=== PATIENT | female | born 1940 | race Caucasian/White ===

== ENCOUNTER 2024-03-03 12:33 | Emergency (ER) | payer OTHER, SELFPAY ==
[2024-03-03] VITALS (10 sets, daily range): BP systolic 134–170; BP diastolic 57–101; PULSE 70–86; BMI 33.1
[2024-03-03 12:56] LABS: % Immature Granulocytes 0.7 % (0-0.5); % Lymphocytes 30.9 % (20.5-51.1); % Monocytes 11.7 % (1.7-9.3); % Neutrophils 56.7 % (42.2-75.2); Absolute Lymphocytes 1.8 10^3/uL (1.2-3.4); Absolute Monocytes 0.7 10^3/uL (0.1-0.6); Absolute Neutrophils 3.3 10^3/uL (1.4-6.5); Hematocrit 35.1 % (37.0-47.0); Hemoglobin 11.6 g/dL (12.0-16.0); Mean Corpuscular Hgb 33.5 pg (27.0-31.0); Mean Corpuscular Volume 101.4 fL (81.0-99.0); Mean Platelet Volume 9.1 fL (7.4-10.4); Nucleated Red Blood Cells % 0 %; Platelet Count 274 10^3/uL (130-400); Red Blood Cell Count 3.46 10^6/uL (4.20-5.40); Red Cell Dist. Width 13.8 % (11.5-14.5); White Blood Cell Count 5.8 10^3/uL (4.8-10.8)
[2024-03-03 13:19] LABS: ALT (SGPT) 21 U/L (0-35); AST (SGOT) 30 U/L (14-36); Albumin 4.7 g/dl (3.5-5.0); Alkaline Phosphatase 81 U/L (38-126); Blood Urea Nitrogen 11 mg/dl (7-17); Calcium 9.9 mg/dl (8.4-10.2); Carbon Dioxide 28 mmol/L (22-30); Chloride 99 mmol/L (98-107); Glucose 118 mg/dl (70-99); Potassium 4.7 mmol/L (3.5-5.1); Sodium 136 mmol/L (135-145); Total Bilirubin 0.9 mg/dl (0.2-1.3); Total Protein 7.5 g/dl (6.3-8.2); eGFR > 60.00
--- NOTE | 2024-03-03 16:20 | ED.GENMED ---
History of Present Illness
General
Chief Complaint: Headache
Source: patient
Exam Limitations: none
Time Seen by Provider: 03/03/24 15:52
Nursing documentation reviewed up to this point in time: agreed with
History of Present Illness
History of Present Illness:
Patient is a 83 year old female presenting to the emergency department from home for evaluation of intermittent headaches. She reports frontal headaches that are 'on and off' and more severe over this past week. She does note some visual 'changes'
intermittently during these headaches. She denies any true loss of vision, blurry vision, double vision, flashers or floaters and states that it just seems 'off'. At this time - patient does have a mild frontal headache although denies any vision
disturbances. Headache is definitely less severe than it was earlier today. These headaches are gradual in onset and not sudden.
She thinks that she has noticed a headache at least at some point every day over the last week but feels they occur randomly and do not correlate to any time of day/activity.
Patient denies any recent trauma. No nausea/vomiting, dizziness, ataxia, dysarthria, weakness or numbness/tingling. Patient denies any associated fevers, severe neck pain/stiffness, rashes. No other URI symptoms.
Past History
Past History
ED Past Medical History: NIDDM
ED Past Surgical History: Cholecystectomy, Gynecological (Hysterectomy) and Orthopedic (Bilateral carpal tunnel release)
Social History
Tobacco: Non-smoker
Alcohol: Occasional
Personal:
Living: with family
Family History
Family History: Diabetes; Negative CAD
Review of Systems
Review of Systems
Allergies reviewed?: Yes
All Other Systems: ROS reviewed and negative except as documented in HPI and ROS
Phy Exam
Physical Exam
Physical Exam:
Vitals: Mildly hypertensive on arrival, otherwise VSS. Afebrile
General: Patient is well appearing, no acute distress. Nontoxic appearing.
Skin: Warm and dry, no rashes or lesions
Head: Normocephalic, atraumatic. Mild tenderness to palpation of frontal sinuses. No tenderness at TMJ. No jaw claudication. No true temporal tenderness.
Eyes: Sclera nonicteric. EOMs intact. Visual krishnan intact. Pupils equal round and reactive to light bilaterally. No nystagmus.
Throat: Protecting airway
Neck: Normal ROM, no cervical spine tenderness, no meningismus
Cardiac: Regular rate and rhythm, no murmurs.
Pulm: Normal respiratory effort, no wheezes, rales, rhonchi heard on exam.
Abdomen: No abdominal tenderness.
Extremities: No evidence of cyanosis or edema
Neuro: AAOx3. CN II-XII intact. No focal neurologic deficits. Sensation fully intact. Strength 5/5 in upper and lower extremities. Normal finger to nose. Speech fluid.
Psychiatric: Normal affect.
Course
Orders/Labs/Results
Orders:
Orders
03/03/24 12:42
CT Head W/o Iv Contrast Urgent
Comment:
Reason For Exam: headache, vision changes over 1 week
C-Reactive Protein Urgent
Comment: ADD ON
CMP [Comprehensive Metabolic Panel] Urgent
Complete Blood Count/With Diff Urgent
Erythrocyte Sed Rate Urgent
Comment: ADD ON
03/03/24 16:15
Orthostatic VS- Treatment ONCE
03/03/24 16:19
Add On- LAB Urgent
Tests Added?: ESR, CRP
03/03/24 16:29
COVID-19 Antigen Urgent
Source: Nasal Swab
03/03/24 16:40
Acetaminophen [Tylenol] 650 mg PO NOW STA
Abnormal Lab Results
03/03/24
12:42
RBC 3.46 L 10^6/uL
(4.20-5.40)
Hgb 11.6 L g/dL
(12.0-16.0)
Hct 35.1 L %
(37.0-47.0)
MCV 101.4 H fL
(81.0-99.0)
MCH 33.5 H pg
(27.0-31.0)
Absolute Monos (auto) 0.7 H 10^3/uL
(0.1-0.6)
Immature Gran % 0.7 H %
(0-0.5)
Monocytes % 11.7 H %
(1.7-9.3)
Glucose 118 H mg/dl
(70-99)
03/03/24 12:42
03/03/24 12:42
Vital Signs
Initial and Last Documented VS:
Initial Vital Signs
Temp Pulse Resp BP Pulse Ox
98.0 F 74 16 161/95 99
03/03/24 12:34 03/03/24 12:34 03/03/24 12:34 03/03/24 12:34 03/03/24 12:34
Last Documented Vital Signs
Temp Pulse Resp BP Pulse Ox
98.0 F 72 18 168/89 97
03/03/24 12:34 03/03/24 19:41 03/03/24 19:41 03/03/24 19:41 03/03/24 19:41
MDM/Problems Addressed
Differential Diagnosis Includes:
Not limited to: migraine headache, sinusitis, tension headache, temporal arteritis, mass, intraparenchymal hemorrhage
MDM/Problems Addressed:
83-year-old female presenting with intermittent headaches and visual disturbances over the past week. Headaches seem to be somewhat chronic for patient although 'worse 'over the past week. Denies any true visual loss, double vision, blurry vision,
flashers, floaters. No dizziness. No ataxia, dysarthria. No fevers or meningeal signs. Patient mildly hypertensive, otherwise vital signs are stable. She is afebrile. Physical exam as above. Patient is very well-appearing, conversational and
nontoxic. Mild tenderness to frontal sinuses and bilateral temples. No tenderness to maxillary sinuses. Visual krishnan are intact. Pupils equal round and reactive to light bilaterally. Patient has no meningeal signs. She has no focal neurologic
deficits. Initial labs were obtained in triage which show a very mild and stable anemia with hemoglobin 11.6. Otherwise no clinically significant abnormalities. Head CT was also obtained without any acute findings. Suspect likely tension
headache vs sinusitis. Given age, history of possible vision disturbances, and location of pain�temporal arteritis would be a consideration, although lower suspicion. Will add on inflammatory markers. Given patient has no focal neurologic
deficits and headaches seem somewhat chronic and gradual in nature with normal head CT�do not suspect central process. Will treat with Tylenol and reassess. Patient has not taken any [id number] pain medication prior to coming to emergency
department. Disposition pending inflammatory markers, reassessment.
Chronic conditions affecting care:
N/A
Acute Exacerbation and/or Progression of Chronic Illness:
N/A
*Radiology
Radiology exam reviewed: radiology read reviewed
*Pulse Oximetry
Patient hypoxic: no
*EKG
Interpreted by ED Provider?: NA
*Decision Support Manager Interpretation
Rate: Decision Support Manager- N/A
*Critical Care Note
Total Time (30-74mins, 75-104mins- exclusive of procedures): Not Applicable
Update Note
Update Note:
Update: COVID test negative. Inflammatory markers, ESR and CRP both negative. Into reassess patient who does report improvement in pain following Tylenol. She is feeling better. Did get patient up and walking and she has steady gait, no
instability. Suspect likely sinusitis vs tension headache given improvement in pain with Tylenol and negative workup. Did discuss at length return precautions with patient. She will monitor symptoms very closely and return if worse. She will
follow closely with primary care as well and may need ENT/neurology input if symptoms persist. Case discussed with attending physician
ED Attending Note
-
Portions of this chart may have been created with voice recognition software.� Occasional wrong word or��sound alike� substitutions may have occurred due to the inherent limitations of voice recognition software.
Discharge Plan
Departure
Patient Disposition: Home (Routine Discharge)
Date of Disposition: 03/03/24
Time of Disposition: 19:58
Patient with high blood pressure during this ER visit?: No
Condition: Good
Covid-19: Negative COVID-19
Discharge Problem:
Headache
Instructions: Headache, Adult (DC)
Prescriptions:
No Action
acetaminophen [Tylenol] 325 mg Tablet
325 mg PO DAILYPRN PRN (Reason: mild pain)
cholecalciferol (vitamin D3) [Vitamin D3] 25 mcg (1,000 unit) Tablet
25 mcg PO DAILY
psyllium husk 0.4 gram Capsule
0.4 g PO QPM
Centrum Minis Women 50 Plus 4 mg iron-200 mcg-25 mcg Tablet
1 tab PO DAILY
Referrals:
Bre Huitron PA-C [Family Provider] - Follow up in 5-7 days
Activity Restrictions/Additional Instructions:
RETURN TO THE EMERGENCY DEPARTMENT WITH ANY SEVER HEADACHE, VOMITING, CHANGES IN VISION, DIFFICULTY WALKING, CONFUSION, NUMBNESS/TINGLING IN LOWER LEGS, FEVERS, WORSENING IN CURRENT SYMPTOMS, OR ANY OTHER CONCERNS
-As discussed�your CT scan showed no acute abnormalities in the brain.
-You should continue to take Tylenol at home as needed for headache. You can try Flonase nasal spray. it is important to stay very well-hydrated.
-Follow-up with your primary care provider in a few days for further evaluation/ to ensure symptoms are improving
Monitor your symptoms closely return to the emergency department with any acute worsening/new symptoms or any signs of neurologic changes
Interventions
Interventions:
*Risk Screen - Suicide Last Done: 03/03/24 12:34
*General Assessment Last Done: 03/03/24 12:34
*Neglect/Abuse Screening Last Done: 03/03/24 17:56
*ED COVID-19 Vaccine History Last Done: 03/03/24 12:34
*Nursing Disposition Last Done: 03/03/24 20:20
Discharge Date and Time
Discharge Date/Time: 03/03/24 20:20
Print Language: EQUATORIAL GUINEAN
[2024-03-03 16:51] LABS: COVID-19 Antigen Negative (Negative)
[2024-03-03] MEDS: TYLENOL 650 MG PO (17:18)
[2024-03-03 17:33] LABS: Erythrocyte Sed Rate 17 mm/hour (0-20)
[2024-03-03 18:01] LABS: C-Reactive Protein < 5.00 mg/L (0.0-10.00)
== END 2024-03-03 20:20 | disposition home or self-care (01) ==
LOC: EMR 12:33
PROVIDERS: Emergency Medicine; Physician Assistant; EMERGENCY PHYSICIAN Emergency Medicine; FAMILY PHYSICIAN Physician Assistant Medical
DX: R51.9 Headache, unspecified (principal); E11.9 Type 2 diabetes mellitus without complications; D64.9 Anemia, unspecified; Z83.3 Family history of diabetes mellitus; Z90.49 Acquired absence of other specified parts of digestive tract; Z90.710 Acquired absence of both cervix and uterus
CPT/HCPCS: 99284; 70450; 80053; 85025; 85652; 86140; 87811

== ENCOUNTER 2024-10-20 21:19 | Inpatient (IN) | payer OTHER, SELFPAY ==
[2024-10-20 18:53] VITALS: BMI 33.4
[2024-10-20 18:56] VITALS: BP 169/86
[2024-10-20] MEDS: MORPHINE SULFATE 4 MG IV ×2 (19:08→20:33)
[2024-10-20] MEDS: ZOFRAN 4 MG IV (19:09)
[2024-10-20 19:30] LABS: Hematocrit 28.3 % (37.0-47.0); Hemoglobin 10.1 g/dL (12.0-16.0); Mean Corp Hgb Conc. 35.7 g/dL (33.0-37.0); Mean Corpuscular Volume 98.6 fL (81.0-99.0); Nucleated Red Blood Cells % 0 %; Platelet Count 255 10^3/uL (130-400); Red Cell Dist. Width 13.7 % (11.5-14.5)
[2024-10-20 19:45] LABS: ALT (SGPT) 18 U/L (0-35); AST (SGOT) 25 U/L (14-36); Albumin 4.4 g/dl (3.5-5.0); Alkaline Phosphatase 92 U/L (38-126); Blood Urea Nitrogen 14 mg/dl (7-17); Calcium 9.4 mg/dl (8.4-10.2); Carbon Dioxide 25 mmol/L (22-30); Chloride 105 mmol/L (98-107); Estimated Creatinine Clearance 47 ml/min; Glucose 140 mg/dl (70-99); Potassium 4.2 mmol/L (3.5-5.1); Sodium 135 mmol/L (135-145); Total Protein 6.7 g/dl (6.3-8.2); eGFR > 60.00
--- NOTE | 2024-10-20 20:01 | ED.GENMED ---
History of Present Illness
General
Chief Complaint: Fall
Source: patient
Exam Limitations: none
Time Seen by Provider: 10/20/24 18:57
Nursing documentation reviewed up to this point in time: agreed with
History of Present Illness
History of Present Illness:
Note:
CHIEF COMPLAINT(S)
Pain in the left hip.
HISTORY OF PRESENT ILLNESS
The patient is an 84-year-old female presenting with pain in the left hip. She describes the pain as causing significant discomfort and states, 'Oh, I am uncomfortable.' The onset of the pain occurred while trying to sit in the chair. The chair
rolled out and she fell onto the floor. She denies hitting her head or losing consciousness during this episode. There is also indication of generalized body discomfort, although the primary focus remains on the left hip. The patient reports
experiencing some back pain as well, which she describes as mild. Patient states that the back pain is chronic. She did have back surgery in [address] Iniguez
ALLERGIES
The patient reports allergies to certain pain medications; however, specific medications were not identified during the discussion. The patient is uncertain about past exposure to morphine.
CHRONIC MEDICAL CONDITIONS SIGNIFICANTLY AFFECTING CARE
The patient has a history of back issues for which she received treatment in 2014. She also has a history of type 2 diabetes, although she is not currently on medication for it.
PHYSICAL EXAM
- General: The patient appears uncomfortable due to left hip pain.
- Musculoskeletal: Reported pain in the left hip and mild back discomfort.
PROBLEM LIST
Acute:
- Left hip pain
Chronic:
- History of back problems
- Type 2 diabetes (currently not on medication)
PLAN
1. Administer morphine for pain management, pending confirmation of no allergy to this medication.
2. Order an X-ray of the left hip to assess for any fractures or other abnormalities.
DIFFERENTIAL DIAGNOSIS
The Differential Diagnosis includes, in no particular order and is not limited to:
1. Hip fracture
2. Osteoarthritis
Nursing notes reviewed and vital signs reviewed.
Disposition:
SUMMARY OF ENCOUNTER
The patient, an 84-year-old female, presented to the emergency department with left hip pain after falling while trying to sit in a chair. She denied hitting her head or losing consciousness. On evaluation, she complained of significant left hip
discomfort. An X-ray was conducted, which showed a slightly comminuted and displaced left femoral neck fracture.
DISPOSITION
Admit to hospital service.
ASSESSMENT
The patient is an 84-year-old female with a left femoral neck fracture, likely complicated by age-related changes in bone structure.
EMERGENCY TREATMENTS ADMINISTERED
The patient received morphine for pain management.
MANAGEMENT OF THE PATIENTS CARE WAS DISCUSSED WITH
Orthopedics was consulted regarding the left femoral neck fracture.
INDEPENDENT REVIEW OF LABS AND INTERPRETATION OF TESTS
- My independent interpretation of the X-ray reveals a slightly comminuted and displaced left femoral neck fracture.
MEDICATION RECONCILIATION
Morphine was administered for pain management.
MEDICAL DECISION MAKING
- Number and Complexity of Problems Addressed: Chronic conditions affecting care include history of back problems and type 2 diabetes (currently not on medication). Differential Diagnosis: Hip fracture, Osteoarthritis, Muscle strain, Bursitis,
Tendinitis, Lumbar radiculopathy, Sacroiliac joint dysfunction, Spinal stenosis, Avascular necrosis, Metastatic bone disease.
- Data:
- Category 1: X-ray tests independently reviewed.
- Category 3: Management discussed with tax services specialist.
- Risk: The patient is to be admitted due to the hip fracture and the required orthopedics consultation for surgical evaluation and management.
DIAGNOSIS
- Left femoral neck fracture (ICD-10 code: S72.001A).
Past History
Past History
ED Past Medical History: NIDDM
ED Past Surgical History: Cholecystectomy, Gynecological (Hysterectomy) and Orthopedic (Bilateral carpal tunnel release)
Social History
Tobacco: Non-smoker
Alcohol: Occasional
Personal:
Living: with family
Family History
Family History: Diabetes; Negative CAD
Review of Systems
Review of Systems
Allergies reviewed?: Yes
All Other Systems: ROS reviewed and negative except as documented in HPI and ROS
Constitutional: Reports no symptoms
EENT: Reports no symptoms
Respiratory: Reports no symptoms
Cardiac: Reports no symptoms
ABD/GI: Reports no symptoms
: Reports no symptoms
Musculoskeletal: Reports joint pain, joint swelling and muscle pain
Skin: Reports no symptoms
Neurological: Reports no symptoms
Endocrine: Reports no symptoms
Hematologic/Lymphatic: Reports no symptoms
Psychiatric: Reports no symptoms
Phy Exam
General Physical Exam
General Presentation: moderate distress
General age: appears stated age
General Skin: warm and dry
General Habitus: normal
General Mental: alert
General Hydration: appears well hydrated
ENT Exam
ENT Exam: EOMI, pharynx normal, neck supple and normocephalic
Eye Exam
Eye Exam: PERRL, cornea clear and conjunctiva normal
Cardiovascular Exam
Cardiovascular Exam: regular rate/rhythm, no edema, no murmur and normal peripheral pulses
Pulmonary Exam
Pulmonary Exam: lungs clear, no respiratory distress, no rales, no crackles, no rhonchi, no stridor, no wheezing and no cough
Gastrointestinal Exam
Gastrointestinal Exam: normal bowel sounds, non tender, soft, no organomegaly, no pulsatile mass and non distended
Neurological Exam
Neurological Exam: alert, oriented x3, no motor deficits and speech normal
Musculoskeletal Exam
Musculoskeletal Exam: back pain (Chronic) and joint swelling (Left hip)
Skin Exam
Skin Exam: normal color, warm/dry, no rash and no petechia
Psychiatric Exam
Psychiatric Exam: normal mood/affect
Course
Orders/Labs/Results
Orders:
Orders
10/20/24 18:55
Hip, Left 2-3 Views [CR Hip - LT w/wo Pel 2-3 Vw*] Urgent
Comment:
Reason For Exam: injury post fall
Include a pelvis x-ray?: No
10/20/24 19:02
Morphine Sulfate 4 mg IV NOW STA
10/20/24 19:03
Ondansetron Injectable [Zofran] 4 mg IV NOW STA
10/20/24 19:04
Electrocardiogram (*1) Urgent
Reason for Study: PreOp
Urinalysis Reflex To Culture Urgent
10/20/24 19:05
EKG- Treatment ONCE
10/20/24 19:13
Type+Screen Urgent
Complete Blood Count/With Diff Urgent
Comprehensive Metabolic Panel Urgent
10/20/24 20:02
ABO2 Urgent
BBK Wristband Number:
Associate notified that ABO2 has been ordered: ANTOINETTE/[id number]
Date: 10/20/24
Time: 20:02
Raw Cheese Worker ID: [id number]
10/20/24 20:03
Protime/PTT Urgent
10/20/24 20:05
Morphine Sulfate 4 mg IV NOW STA
10/20/24 20:08
Femur, Left 2 View [CR Femur - Left Min 2 Vw] Urgent
Comment:
Reason For Exam: hip fx
Abnormal Lab Results
10/20/24
19:13
RBC 2.87 L 10^6/uL
(4.20-5.40)
Hgb 10.1 L g/dL
(12.0-16.0)
Hct 28.3 L %
(37.0-47.0)
MCH 35.2 H pg
(27.0-31.0)
Abs Immat Gran (auto) 0.1 H 10^3/uL
(0-0.05)
Absolute Monos (auto) 0.8 H 10^3/uL
(0.1-0.6)
Immature Gran % 1.0 H %
(0-0.5)
Monocytes % 12.5 H %
(1.7-9.3)
Glucose 140 H mg/dl
(70-99)
10/20/24 19:13
10/20/24 19:13
Vital Signs
Initial and Last Documented VS:
Initial Vital Signs
Temp Pulse Pulse Ox
98.2 F 70 100
10/20/24 18:51 10/20/24 18:51 10/20/24 18:51
Last Documented Vital Signs
Temp Pulse BP Pulse Ox
98.2 F 70 169/86 100
10/20/24 18:51 10/20/24 18:51 10/20/24 18:56 10/20/24 20:05
*Pulse Oximetry
SaO2: 100
Oxygen Mode of Delivery: Room air
Patient hypoxic: no
*Critical Care Note
Total Time (30-74mins, 75-104mins- exclusive of procedures): Not Applicable
Update Note
Update Note:
Spoke with Dr. Prado , orthopedic surgery who requested a Full-length femur
Spoke with the hospitalist who agreed to admit the patient.
ED Attending Note
-
Portions of this chart may have been created with voice recognition software.� Occasional wrong word or��sound alike� substitutions may have occurred due to the inherent limitations of voice recognition software.
Discharge Plan
Departure
Patient Disposition: Admit
Date of Disposition: 10/20/24
Time of Disposition: 20:19
Presentation/result/management discussed w/ accepting MD/DO: Hospitalist
Condition: Fair
Discharge Problem:
Closed fracture of left hip
Prescriptions:
No Action
acetaminophen [Tylenol] 325 mg Tablet
325 mg PO DAILYPRN PRN (Reason: mild pain)
cholecalciferol (vitamin D3) [Vitamin D3] 25 mcg (1,000 unit) Tablet
25 mcg PO DAILY
psyllium husk 0.4 gram Capsule
0.4 g PO QPM
Centrum Minis Women 50 Plus 4 mg iron-200 mcg-25 mcg Tablet
1 tab PO DAILY
Referrals:
Bre Huitron PA-C [Family Provider, Family Practice]
Interventions
Interventions:
*Risk Screen - Suicide Last Done: 10/20/24 18:53
*General Assessment Last Done: 10/20/24 18:53
*Neglect/Abuse Screening Last Done: 10/20/24 18:53
*ED- Fall Risk Assessment Last Done: 10/20/24 18:53
*ED COVID-19 Vaccine History Last Done: 10/20/24 18:53
ED-Musculoskeletal Assessment Last Done: 10/20/24 18:54
ED- Neurological Assessment Last Done: 10/20/24 18:54
ED-Skin Assessment Last Done: 10/20/24 18:54
Discharge Date and Time
Print Language: ST LUCIAN
[2024-10-20 20:26] LABS: APTT 28.2 Sec (23.4-35.0); INR 1.04; PT 14.1 Sec (11.4-14.6)
--- NOTE | 2024-10-20 20:40 | HPS.HSE ---
Addendum entered and electronically signed by Oj Patino MD 10/20/24 21:17:
History of Present Illness
Correct HPI
84F HX T2DM seen at ER:
- pw pain in the left hip with significant discomfort
- While trying to sit in the chair, the chair rolled out and she fell onto the floor.
ROS
- denies hitting her head or losing consciousness during this episode.
- reports experiencing some back pain as well, which she describes as mild.
- Back pain is chronic. HX back surgery [place] [address] Iniguez
Wrong HPI
<del>59M</del> <del>from</del> <del>[facility]</del> <del>,</del> <del>HX</del> <del>severe</del> <del>Fentanyl</del> <del>&</del> <del>Xylazine(</del> <del>Trank)</del> <del>use</del> <del>disorder</del> <del>[facility]</del> <del>EMS</del> <del>pw</del>
<del>nausea,</del> <del>vomiting.</del>
<del>-</del> <del>was</del> <del>brought</del> <del>into</del> <del>[facility]</del> <del>last</del> <del>night</del>
<del>-</del> <del>reports</del> <del>using</del> <del>IV</del> <del>Trank</del> <del>(</del> <del>Xylazine)</del> <del>&</del> <del>Fentanyl</del> <del>yesterday</del>
<del>-</del> <del>uses</del> <del>4-5</del> <del>bags</del> <del>of</del> <del>each</del> <del>daily.</del>
<del>-</del> <del>not</del> <del>cooperate</del> <del>on</del> <del>exam.</del>
<del>-</del> <del>writhing</del> <del>and</del> <del>diaphoretic</del>
Original Note:
Family Physician
-
Family Physician: Bre Huitron
Chief Complaint
-
Lt hip pain s/p fall
History of Present Illness
HPI
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
- was brought into [facility] last night
- reports using IV Trank ( Xylazine) & Fentanyl yesterday
- uses 4-5 bags of each daily.
- not cooperate on exam.
- writhing and diaphoretic
Medical History
Past Medical History
Past Medical History: Reports NIDDM
Past Surgical History: Reports Cholecystectomy, Gynocological (hysterectomy ) and Orthopedic (Bilateral carpal tunnel release))
Social History
Tobacco: Non-smoker
Alcohol: Occasional
Personal:
Family History
Family History: Not pertinent
Allergies / Home Medications
Allergies reflects when Allergies were last updated in [facility].
Home Medications with original date entered in [facility]
Allergy/Medication List:
Allergies
Allergy/AdvReac Type Severity Reaction Status Date / Time
soy (Soy) Allergy Diarrhea, Verified 03/03/24 12:38
nausea
Sulfa (Sulfonamide Allergy Unknown Verified 03/03/24 12:38
Antibiotics)
(Sulfa(Sulfonamide
Antibiotics))
Home Medications
acetaminophen 325 mg tablet (Tylenol) 325 mg PO DAILYPRN PRN mild pain 02/05/23
cholecalciferol (vitamin D3) 25 mcg (1,000 unit) tablet (Vitamin D3) 25 mcg PO DAILY 02/05/23
pkwejfnm-sob-mjqb 4 mg-folic acid 200 mcg-vit K 25 mcg-lutein tablet (Centrum Minis Women 50 Plus) 1 tab PO DAILY 02/05/23
psyllium husk 0.4 gram capsule 0.4 g PO QPM 02/05/23
Review of Systems
-
Constitutional: Reports No Symptoms
EENT: Reports No Symptoms
Respiratory: Reports No Symptoms
Cardiac: Reports No Symptoms
Abdomen/GI: Reports No Symptoms
: Reports No Symptoms
Musculoskeletal: Reports See HPI
Skin: Reports No Symptoms
Neurological: Reports No Symptoms
Endocrine: Reports No Symptoms
Hematologic/Lymphatic: Reports No Symptoms
Psych: Reports No Symptoms
Physical Exam
Vital Signs
Vital Signs
Temp Pulse BP Pulse Ox
98.2 F 70 169/86 100
10/20/24 18:51 10/20/24 18:51 10/20/24 18:56 10/20/24 20:05
Physical Exam
General: Well Developed, Well Nourished and No Apparent Distress
HEENT: NormoCephalic, Moist mucous membranes and Atraumatic
Respiratory: Clear
Cardiac: S1/S2 and Regular Rhythm; No Murmur or Rub
GI: Soft, Non Tender, Non Distended and Normal Bowel Sounds; No Organomegaly
Rectal: Deferred by Provider
Skin: No Rash
Neuro: Nonfocal/grossly intact
Laboratory Results
-
10/20/24 19:13
10/20/24 19:13
Laboratory Results
PT 14.1 Sec (11.4-14.6) 10/20/24 20:03
INR 1.04 10/20/24 20:03
APTT 28.2 Sec (23.4-35.0) 10/20/24 20:03
Total Bilirubin 0.8 mg/dl (0.2-1.3) 10/20/24 19:13
AST 25 U/L (14-36) 10/20/24 19:13
ALT 18 U/L (0-35) 10/20/24 19:13
Alkaline Phosphatase 92 U/L (38-126) 10/20/24 19:13
Data Reviewed
-
Diagnostic Radiology: Report Reviewed by me
Lab Data: Labs Reviewed by me
Impression/Plan
-
XR Lt Hip and full length femur : pending report
NO PRIOR hospitalist admission:
ASSESSMENT & PLAN
Pending Rx reconciliation
Acute closed Left hip Fx s/p Mechanical fall
Benefits of ORIF outweigh the perio risk
- full length femur XR
- T & S
- check UA
-No blood thinners.
- type and screen.
- Fx set protocol
- NPO after MN
- Medically acceptable to proceed for OR in AM
T2DM listed PMHX
- not on any OP OHG agents or insulin
- add ISS low
DVT Px: SCD
Full code
IP MS
[2024-10-20 22:00] VITALS: BMI 32.3
[2024-10-20 22:21] VITALS: BP 159/88
[2024-10-20] MEDS: DILAUDID 0.5 MG IV (22:38)
[2024-10-20] MEDS: NSS 1000 IV (22:38)
[2024-10-20] MEDS: SENOKOT PO (22:41)
[2024-10-20] MEDS: COLACE PO (22:41)
--- NOTE | 2024-10-20 23:23 | TRANSFER ---
Received pt from ED via stretcher at 2135, pt was ordered another xray and was transported to xray, returned back to room at 2200. Dx acute left hip fracture s/p mechanical fall. LLE shortened and externally rotated. Pt drowsy but arousable to
verbal, reported pain to LLE 8/10 - medicated with PRN pain med as ordered. Pt placed on static overlay, purewick in place. VS WNL. Plan of care discussed w pt and son - Last. Call anthony within reach, bed in lowest position.
[2024-10-20 23:58] LABS: Glucose - Point of Care 213 mg/dl (70-99)
--- NOTE | 2024-10-20 23:58 | PTCARENOTE ---
Pt's partial upper dentures given to steven Ni and taken home.
[2024-10-21] VITALS (11 sets, daily range): BP systolic 140–162; BP diastolic 74–89; BMI 32.6
[2024-10-21] MEDS: COMPAZINE 5 MG IV (00:12)
[2024-10-21 00:53] LABS: Urine Character Clear (Clear)
[2024-10-21] MEDS: TYLENOL PO ×5 (01:00→15:51)
[2024-10-21 01:25] LABS: Urine Red Blood Cell None Seen /HPF (0-2); Urine White Cell 0-2 /HPF (0-5)
[2024-10-21 05:58] LABS: Glucose - Point of Care 201 mg/dl (70-99)
[2024-10-21] MEDS: NOVOLOG FLEXPEN-LOW RESISTANCE 2 UNITS SC (06:14)
--- NOTE | 2024-10-21 07:07 | CON.ORTHO ---
Consultation
-
Date/Time Consultation Requested: October 20, 2024 at 7 PM
Date/Time Consultation Performed: October 21, 2024 at 7 AM
Requesting Provider: Dr Sanchez
Performing Provider: Ja Lyle PA-C for Dr. Prado
Reason for Consultation: Left hip pain
Consultation - Orthopedics
History
This is an 84-year-old female who unfortunately fell out of a chair yesterday injuring her left hip. In her fall she denies any other injuries and did not hit her head. No loss of consciousness. She does have prior low back surgery and has
chronic back pain. No changes in her symptomatology since her injury. Pain is all located to the left hip and range of motion produces pain. She does live locally with her and does ambulate with a cane.
Allergies / Home Medications
Allergy/AdvReac Type Severity Reaction Status Date / Time
soy (Soy) Allergy Diarrhea, Verified 03/03/24 12:38
nausea
Sulfa (Sulfonamide Allergy Unknown Verified 03/03/24 12:38
Antibiotics)
(Sulfa(Sulfonamide
Antibiotics))
�Medication �Instructions �Recorded
psbekdnu-hlee-nuus 8 mg-folic 400 1 tab PO DAILY 10/20/24
mcg-K 50 mcg-lutein 300 mcg tablet
(Centrum Silver Women)
Vital Signs / Lab Results
Temp Pulse Resp BP Pulse Ox
97.9 F 89 14 159/88 93
10/20/24 22:21 10/20/24 22:21 10/20/24 22:21 10/20/24 22:21 10/20/24 22:21
10/20/24 19:13
10/20/24 19:13
Left hip edema with ecchymosis with shortening and external rotation. [place] produces hip pain. No calf discomfort. Distal neurovascular was intact.
Assessment / Plan
Left hip intertrochanteric fracture with plan to do open reduction internal fixation later today. She will remain n.p.o., surgical site marked/consent signed and Ancef on-call to the operating room. She is anemic so typed and screened has been
ordered.
[2024-10-21] MEDS: COLACE PO (07:33)
[2024-10-21] MEDS: SENOKOT PO (07:33)
--- NOTE | 2024-10-21 07:34 | W.PN.HOSP.TC ---
Today's Communication/Plan
-
see plan
Assessment / Plan
Assessment / Plan
Gen: NAD, awake and alert
Eyes: EOMI, PERRLA, no scleral icterus.
Neck: supple.
CV: RRR, +S1/S2, no m/r/g.
Resp: CTAB, no rales, wheezes, or rhonchi.
Abd: +BS, soft, NT, ND
Skin: Left lower extremity papular rash, mild skin breakdown between the toes of the left foot
Neuro: CN 2-12 intact, non-focal.
Psych: Normal mood and affect.
L hip/femur Xray:
1. ACUTE REVERSE OBLIQUITY TYPE INTERTROCHANTERIC FRACTURE of the LEFT PROXIMAL FEMUR.
2. Mild bilateral osteoarthritis of the hips.
3. 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
4. Previous L4 laminectomy.
Acute closed Left hip Fx s/p Mechanical fall:
-recommend proceeding with orthopedic surgery as the benefits outweigh the risks
-ortho following
Other problems:
DM2: SSI/accuchecks, check a1c
Chronic anemia: trend Hb
FULL/SCDs
Anticipated Discharge: 24 - 48 hours
Subjective/Interval History
-
Date of Service: October 21, 2024
No new complaints.
Objective Data
-
Labs:
Laboratory Results
10/20/24 10/20/24
19:13 20:03
PT 14.1
INR 1.04
APTT 28.2
Sodium 135
Potassium 4.2
Chloride 105
Carbon Dioxide 25
BUN 14
Creatinine 0.9
Glucose 140 H
Calcium 9.4
Total Bilirubin 0.8
AST 25
ALT 18
Alkaline Phosphatase 92
Vital Signs:
Vital Signs
Temp Pulse Resp BP Pulse Ox
97.9 F 89 14 159/88 93
10/20/24 22:21 10/20/24 22:21 10/20/24 22:21 10/20/24 22:21 10/20/24 22:21
I&O
10/20/24 10/21/24 10/22/24
06:59 06:59 06:59
Intake Total 300 / 300
Output Total 650 / 650
Balance -650 / -650 300 / 300
[2024-10-21] MEDS: DILAUDID 0.5 MG IV ×3 (08:05→14:36)
--- NOTE | 2024-10-21 10:04 | CM ---
CM following re: discharge planning.
Reviewed pt's chart, met with pt.
pt is an 84 year old female, admitted with primary dx of Acute closed Left hip Fx s/p Mechanical fall. Per Ortho surgery, OR later today for internal fixation of Left hip intertrochanteric fracture.
Pt reports she lives alone in an in-law suite attached to son's house, has 2 supportive children. 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 No DME, VN or SNF history. pt expressed her understanding she might need to go to a SNF for a
short term rehab and pt stated she would like to be focused on that after the surgery and she will prefer to discuss SNF options with her children.
PT and OT will evaluate the pt after the surgery to determine a level of care at discharge.
PCP: Bre Vargas
Pharmacy: [facility]
D/C plan: preferred SNF. Pt has a list of SNF to review with the family
CM will follow with discharge plan updates as hospitalization progresses
[2024-10-21 10:34] LABS: Glycohemoglobin (HgbA1c) 6.7 % (4.0-5.6)
--- NOTE | 2024-10-21 11:28 | WOUNDNOTE ---
L LATERAL LOWER LEG
--- NOTE | 2024-10-21 11:30 | WOUNDNOTE ---
VIDHYA RN NOTE: Reviewed chart and history. Patient admitted with closed fracture of L hip s/p fall, NPO for OR. Asked to see patient for chronic rash on L leg below knee and both feet. Patient reports she saw a bilingual executive assistant in past and used fungal
cream for it. Rash does appear fungal in nature, suspect patient incontinent of urine that dribbles on leg and feet. Will order Nizoral cream to start tomorrow. Patient unable to turn due to severe pain in hip. Nurse Rordiguez reports sacrum and heels
intact. Nurse updated and recommended to patient and son at bedside to follow up with bilingual executive assistant if does not clear up. will sign off.
[2024-10-21 12:00] LABS: Glucose - Point of Care 168 mg/dl (70-99)
[2024-10-21] MEDS: NOVOLOG FLEXPEN-LOW RESISTANCE 1 UNITS SC (12:39)
--- NOTE | 2024-10-21 13:52 | WOUNDNOTE ---
VIDHYA RN NOTE: Reviewed chart and history. Patient admitted with closed fracture of L hip s/p fall, NPO for OR. Asked to see patient for chronic rash on L leg below knee and both feet. Patient reports she saw a pier worker in past and used fungal
cream for it. Rash does appear fungal in nature, suspect patient incontinent of urine that dribbles on leg and feet. Will order Nizoral cream to start tomorrow. Nurse Rodriguez updated and recommended to patient and son at bedside to follow up with
pier worker if does not clear up. will sign off.
[2024-10-21] MEDS: NIZORAL 2% CREAM TOPICAL (15:51)
--- NOTE | 2024-10-21 18:34 | OR.RPT ---
Operative Report
Operative Report
Orthopaedic Surgery Operative Note
DATE OF OPERATION: 10/21/2024
PREOPERATIVE DIAGNOSIS: Subtrochanteric Hip Fracture, Left
POSTOPERATIVE DIAGNOSIS: Same
OPERATION PERFORMED: Left subtrochanteric hip fracture reduction and fixation with cephalomedulary nail
SURGEON: Placido Prado MD
CLINICAL INFORMATICS SPEC: NA
ANESTHESIA: General
COMPLICATIONS: None.
ESTIMATED BLOOD LOSS: 100 mL.
DRAINS: None
SPECIMEN: None
IMPLANTS:
[place] Gamma Cephalomeduallary nail; 380x10 mm
Rupert lag screw, 95 mm.
5.0 mm distal interlocking screw x2
INDICATIONS FOR PROCEDURE
84F presented to the ED after a fall. Xrays showed displaced subtrochanteric femur fracutre. I discussed treatment options with the patient and family including nonoperative and operative treatments. We reviewed the natural history of the problem,
as well as the risks, benefits, and alternatives of various treatment options. Shared decision was to proceed with surgical treatment. The patient and family understood the risks including, but were not limited to, bleeding, infection, failure to
relieve pain, more pain than preop, damage to blood vessels and nerves, need for reoperation, mechanical failure of the implants, wound healing problems, stiffness, instability, blood clot, pulmonary embolism, myocardial infarction, pneumonia,
arrhythmia, CVA, and . All questions were answered, and informed consent was obtained.
PROCEDURE IN DETAIL: The patient was identified in the preoperative holding area. The operative limb was identified as the operative site and marked with my initials. The patient was transferred to the operating room. General anesthesia was
performed. The patient was transferred to the [facility] operative table. IV antibiotics and tranexamic acid were given. All bony prominences were well padded. The operative limb was prepped and draped in the usual sterile fashion.
We performed a surgical time-out. A 1.6mm (0.65'') humberto wire was placed in the distal femur, and traction bow was applied. This was well padded over the knee. 15lbs of skeletal traction was applied. The fracture was reduced with the aid of
flouroscopy. A small lateral incision was made, and a bone hook, walker, and colinear were used to aid reduction. The proximal fragment was flexed, and it was extended to the shaft with use of the clamp and walker. The guide wire was placed over the
medial aspect of the tip of the greater trochanter. The guide wire was advanced and checked for appropriate position on AP and lateral. The pin guide wire was advanced to the level of the lesser trochanter. Incision was made about the wire. The
opening reamer was used to open the starting point over the guide wire. A ball-tipped guide wire was advanced to the distal femur. Length was measured to be 405mm. The femoral canal was sequentially reamed with the fracture reduced starting with a
9.5mm reamer up to 11.5mm. The nail was then inserted over the guidewire down to the appropriate depth. The guide wire was removed. The targeting guide was assembled, and a lateral incision was made for lag screw placement. A guide pin was advanced
into the femoral head. Position was checked on AP and lateral. The length was measured to be 100mm. The drill was set to the appropriate depth, and the lag screw path was drilled over the guide wire. The lag screw was then inserted into the femoral
head just distal to the subchondral bone. The locking screw was then placed into the top of the nail. Skeletal traction was removed, and a single distal interlocking screw was placed into the static hole with perfect tetlin technique. Final
fluoroscopy shots were performed which showed appropriate position and length of the implant and anatomic reduction of the fracture.
The incisions were copiously irrigated with 3L of normal saline. The deep fascial layers were closed with 0 PDS. The dermal layer closed with 2-0 PDS running. The skin was closed with caitie. Sterile dressings were applied. The patient was awoken
from anesthesia without complication. Sponge and instrument counts were correct x2 at the end of the case.
I was present and participated in the entire procedure. The patient was sent to the recovery room in stable condition.
Post operative plan:
WBAT
PT/OT
Pain control
Delirium prevention
ABX: Ancef x24 hours
DVT: ASA 325 daily
Tyler Prado MD
[2024-10-21 18:47] LABS: Glucose - Point of Care 164 mg/dl (70-99)
[2024-10-21 19:18] LABS: Hematocrit 26.3 % (37.0-47.0); Hemoglobin 9.0 g/dL (12.0-16.0)
--- NOTE | 2024-10-21 20:03 | TRANSFER ---
Received report from BANKING SERVICES CLERK Tina - received pt in bed from PACU @1999 s/p left hip ORIF. Mepilex silver to left hip CDI, x2 lateral knee gauze and tape CDI. 2LNC @97%. Pt is drowsy but arousable to verbal. No c/o pain. VS WNL. Care ongoing.
[2024-10-21] MEDS: NSS IV (20:10)
[2024-10-21] MEDS: COLACE 100 MG PO (20:43)
[2024-10-21] MEDS: TYLENOL 650 MG PO (20:43)
[2024-10-21] MEDS: ASPIRIN 325 MG PO (20:43)
[2024-10-21] MEDS: SENOKOT 17.2 MG PO (20:43)
[2024-10-21] MEDS: NOVOLOG FLEXPEN-LOW RESISTANCE SC (20:54)
[2024-10-21 23:02] LABS: Glucose - Point of Care 209 mg/dl (70-99)
[2024-10-21] MEDS: ANCEF 5 IV (23:10)
[2024-10-22] VITALS (7 sets, daily range): BP systolic 112–167; BP diastolic 63–86; PULSE 87–89; O2SAT 97–98
[2024-10-22] MEDS: TYLENOL PO ×4 (00:46→21:20)
[2024-10-22] MEDS: FLOMAX 0.4 MG PO ×2 (02:09→21:15)
[2024-10-22] MEDS: ANCEF 5 IV (06:03)
[2024-10-22 07:57] LABS: Glucose - Point of Care 224 mg/dl (70-99)
[2024-10-22] MEDS: NOVOLOG FLEXPEN-LOW RESISTANCE 2 UNITS SC ×3 (08:16→17:17)
[2024-10-22] MEDS: SENOKOT 17.2 MG PO (08:17)
[2024-10-22] MEDS: TYLENOL 650 MG PO ×3 (08:17→22:33)
[2024-10-22] MEDS: COLACE 100 MG PO (08:17)
[2024-10-22] MEDS: ASPIRIN 325 MG PO (08:17)
[2024-10-22] MEDS: NIZORAL 2% CREAM 1 APPLIC TOPICAL (08:18)
--- NOTE | 2024-10-22 08:25 | W.PN.ORTHO ---
Today's Communication / Plan
-
Appreciate Dr. Julian and his team, continue Tx
AM labs pending
Confusion post-anesthesia seems to be typical for the patient, per her
Dispo per CM, appreciate their efforts
Continue WBAT B/L LEs on walker
PT/OT
ASA 325mg daily x 4 weeks for DVT ppx
Dressing to remain 2 weeks
Outpatient follow-up with Ortho in 2-[address] Prado's team
Ortho to follow
Assessment
.
Distal Motor Intact: Yes
Dressing:
Clean, dry and intact. Mepilex intact proximally. Gauze dressing intact distally
Assessment:
POD#1 Left hip ORIF
Calf soft, nontender
Plan
.
Surgery / Date: Left Hip ORIF/November 05 ([facility])
DVT Prophylaxis: Aspirin
Activity:
Out of bed. WBAT B/L LEs on walker
PT/OT
Discharge Plan: SNF and Other (appreciate CM)
Subjective
.
.:
Patient resting comfortably. A little confused, which her RN explained is typical postanesthesia- for her
Vital Signs and Labs
.
Vital Signs and Labs:
Temp Pulse Resp BP Pulse Ox
97.7 F 92 16 112/63 93
10/22/24 07:17 10/22/24 07:17 10/22/24 07:17 10/22/24 07:17 10/22/24 07:17
PT 14.1 Sec (11.4-14.6) 10/20/24 20:03
INR 1.04 10/20/24 20:03
[2024-10-22 08:33] LABS: Hematocrit 22.5 % (37.0-47.0); Hemoglobin 7.8 g/dL (12.0-16.0)
[2024-10-22 09:07] LABS: Blood Urea Nitrogen 11 mg/dl (7-17); Calcium 8.3 mg/dl (8.4-10.2); Carbon Dioxide 27 mmol/L (22-30); Chloride 106 mmol/L (98-107); Estimated Creatinine Clearance 70 ml/min; Glucose 205 mg/dl (70-99); Potassium 4.1 mmol/L (3.5-5.1); Sodium 135 mmol/L (135-145); eGFR > 60.00
--- NOTE | 2024-10-22 10:07 | PN.CDI ---
CDI
- -
CDI:
Physician Documentation Request
Admit Date: 10/20/24 21:19
Dear Doctor Eliel,
Please review the following and provide your response in the progress notes.
Clinical Indicators:
Pt admitted for Acute closed Left hip Fx s/p Mechanical fall.
10/21 Orthopedics note: ' This is an 84-year-old female who was trying to get out of a chair yesterday and she lost her balance and fell on her left hip.'
10/21 Hip Xray: .... The bones appear diffusely demineralized....
Please provide further specificity regarding the diagnosis of fracture:
Etiology
Pathologic due to osteoporosis
Traumatic
Due to a combination of trauma and a pathological process
but the trauma alone would not likely have been sufficient
to cause the fracture
Other
Use of terms such as suspected, likely, concern for, or probable (associated with a specific diagnosis that is being evaluated, monitored, or treated as if it exists) are acceptable and can be coded in the inpatient setting, when documented at the
time of discharge.
Thank you,
Camelia Joel RN, BSN
CDI Specialist
[employer]
Please use your independent medical judgment in providing your response.
--- NOTE | 2024-10-22 10:29 | W.PN.HOSP.TC ---
Today's Communication/Plan
-
see plan
Assessment / Plan
Assessment / Plan
Gen: NAD, awake and alert
Eyes: EOMI, PERRLA, no scleral icterus.
Neck: supple.
CV: remains RRR, +S1/S2, no m/r/g.
Resp: remains CTAB, no rales, wheezes, or rhonchi.
Abd: +BS, soft, NT, ND
Skin: Left lower extremity papular rash
Neuro: CN 2-12 intact, non-focal.
Psych: Normal mood and affect.
L hip/femur Xray:
1. ACUTE REVERSE OBLIQUITY TYPE INTERTROCHANTERIC FRACTURE of the LEFT PROXIMAL FEMUR.
2. Mild bilateral osteoarthritis of the hips.
3. 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
4. Previous L4 laminectomy.
Acute closed Left hip Fx s/p Mechanical fall:
-Osteoporosis was an underlying comorbidity that contributed to the patient's fracture
-s/p Left subtrochanteric hip fracture reduction and fixation with cephalomedulary nail on 10/21/24
-ortho following
-WBAT, ASA 325mg daily x 4 weeks
-acute blood loss anemia due to surgery, trend Hb
Other problems:
DM2: a1c 6.7%, SSI/accuchecks
Chronic anemia: see above, trend Hb
FULL/SCDs
Anticipated Discharge: Within 24 hours
Subjective/Interval History
-
Date of Service: October 22, 2024
c/o L hip pain
Objective Data
-
Labs:
Laboratory Results
10/22/24
08:05
Hgb 7.8 L
Hct 22.5 L
Sodium 135
Potassium 4.1
Chloride 106
Carbon Dioxide 27
BUN 11
Creatinine 0.6
Glucose 205 H
Calcium 8.3 L
Vital Signs:
Vital Signs
Temp Pulse Resp BP Pulse Ox
97.7 F 92 16 112/63 93
10/22/24 07:17 10/22/24 07:17 10/22/24 07:17 10/22/24 07:17 10/22/24 07:17
I&O
10/21/24 10/22/24 10/23/24
06:59 06:59 06:59
Intake Total 780 / 780 240 / 240
Output Total 650 / 650 750 / 750
Balance -650 / -650 30 / 30 240 / 240
--- NOTE | 2024-10-22 10:31 | CM ---
Addendum entered by Alysa Quintero 10/22/24 15:18:
[facility], [facility] accepted, [facility] also accepted. Patient [facility] is checking if bed available, [facility] said no beds available over weekend. CM updated patient son and he will call back with choice so CM can start authorization.
Addendum entered by Alysa Quintero 10/22/24 14:09:
Spoke with patient son via phone, referrals sent to [facility], [facility], [facility], [facility] and [facility]. Awaiting responses.
Original Note:
Patient seen at bedside on . Patient stated that she is awaiting visit from physician and therapy. Patient stated that she was to have moved to an independent apartment at [facility] the day after she fell. Patient indicated that her goal is
to go to her in law suite and then go to the independent apartment but agreed to see what therapy and the physicians recommended. Patient stated that her son has the phone number of the supervisor road administrator for [facility] and she would like to have him
called if the patient needs SNF placement. CM will continue to follow for discharge planning needs.
Plan; SNF vs home with VN pending therapy assessments
[2024-10-22 12:30] LABS: Glucose - Point of Care 227 mg/dl (70-99)
[2024-10-22 16:51] LABS: Glucose - Point of Care 200 mg/dl (70-99)
--- NOTE | 2024-10-22 18:23 | PTCARENOTE ---
Around 1600, patient was getting confused and agitated, looking for a 'green button'. Son at bedside at the time. He said that this sort of confusion was new for his mother. Patient stated she was at [facility] but then in the next
conversation was at home. Patient had not voided all day but bladder scans have been consistently less than [address] Julian made aware. Asked RN to check bladder scan with another machine. Result from that machine was [address] Julian came to
bedside to speak to son and patient. No new orders taken.
[2024-10-22] MEDS: SENOKOT PO (19:23)
[2024-10-22] MEDS: COLACE PO (19:23)
[2024-10-22 21:30] LABS: Glucose - Point of Care 182 mg/dl (70-99)
--- NOTE | 2024-10-23 04:41 | PTCARENOTE ---
Patient continues to be confused of situation, time and sometimes place. She has referenced moving furniture and items from her home continuously this shift, even after being reoriented to place and time. Patient was found with surgical dressing to
Left hip removed. [place] intact to incisions x2, cleansed with saline and redressed with primaseal surgical drsg. No drainage noted. Patient was encourage to take tylenol or at least keep ice pack to surgical site for pain relief but is refusing
again at this time. Will cont to assess.
[2024-10-23] MEDS: TYLENOL PO ×4 (05:02→16:58)
[2024-10-23 07:35] VITALS: BP 143/95
[2024-10-23 07:40] LABS: Glucose - Point of Care 206 mg/dl (70-99)
[2024-10-23] MEDS: NOVOLOG FLEXPEN-LOW RESISTANCE 2 UNITS SC ×2 (08:15→12:23)
--- NOTE | 2024-10-23 08:24 | W.PN.HOSP.TC ---
Today's Communication/Plan
-
see plan
Assessment / Plan
Assessment / Plan
Gen: NAD, awake and alert (but confused)
Eyes: EOMI, PERRLA, no scleral icterus.
Neck: supple.
CV: tachycardic, reg rhythm, +S1/S2, no m/r/g.
Resp: continues to remain CTAB, no rales, wheezes, or rhonchi.
Abd: +BS, soft, NT, ND
Neuro: CN 2-12 intact, non-focal.
Psych: calm but confused
L hip/femur Xray:
1. ACUTE REVERSE OBLIQUITY TYPE INTERTROCHANTERIC FRACTURE of the LEFT PROXIMAL FEMUR.
2. Mild bilateral osteoarthritis of the hips.
3. 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
4. Previous L4 laminectomy.
SIRS:
-leukocytosis and tachycardia (but no fever)
-currently with acute encephalopathy, likely a combination of acute metabolic encephalopathy and hospital acquired delirium
-check CXR, U/A, BCxs
-IVFs (no need for 30cc/kg without defined source of infection, normotension, etc)
-Empiric Vanco/Zosyn
Acute closed Left hip Fx s/p Mechanical fall:
-Osteoporosis was an underlying comorbidity that contributed to the patient's fracture
-s/p Left subtrochanteric hip fracture reduction and fixation with cephalomedulary nail on 10/21/24
-ortho following
-WBAT, ASA 325mg daily x 4 weeks
-acute blood loss anemia due to surgery (acute on chronic anemia), trend Hb (stable)
Other problems:
DM2: a1c 6.7%, SSI/accuchecks
FULL/SCDs
Total time spent on today's encounter was 50 minutes which included time spent in counseling the patient/family regarding diagnosis and treatment plan as listed above, goals of care, and symptom management. Case was discussed with nursing staff,
specialists, and care coordinators/case management. All labs and imaging personally reviewed by me. Remainder the time spent in detailed review of previous records, lab data, imaging, and other medical provider documentation.
Anticipated Discharge: 24 - 48 hours
Subjective/Interval History
-
Date of Service: October 23, 2024
Pt confused.
Objective Data
-
Vital Signs:
Vital Signs
Temp Pulse Resp BP Pulse Ox
97.8 F 113 14 143/95 93
10/23/24 07:35 10/23/24 07:35 10/23/24 07:35 10/23/24 07:35 10/23/24 07:35
I&O
10/22/24 10/23/24 10/24/24
06:59 06:59 06:59
Intake Total 780 / 780 1480 / 1480
Output Total 750 / 750 700 / 700
Balance 30 / 30 780 / 780
[2024-10-23 08:42] VITALS: BP 151/100; BP 153/85; PULSE 107; PULSE 117; O2SAT 92
[2024-10-23 08:50] VITALS: BP 151/100; BP 153/85; PULSE 107; PULSE 117; O2SAT 92
[2024-10-23 08:57] LABS: Hematocrit 21.8 % (37.0-47.0); Hemoglobin 7.7 g/dL (12.0-16.0); Mean Corp Hgb Conc. 35.3 g/dL (33.0-37.0); Mean Corpuscular Volume 97.8 fL (81.0-99.0); Platelet Count 206 10^3/uL (130-400); Red Cell Dist. Width 13.8 % (11.5-14.5)
[2024-10-23] MEDS: ASPIRIN 325 MG PO (09:04)
[2024-10-23] MEDS: COLACE PO ×2 (09:06→21:13)
[2024-10-23] MEDS: SENOKOT PO ×2 (09:07→21:13)
[2024-10-23] MEDS: NIZORAL 2% CREAM 1 APPLIC TOPICAL (09:07)
[2024-10-23 09:12] LABS: Blood Urea Nitrogen 11 mg/dl (7-17); Calcium 8.2 mg/dl (8.4-10.2); Carbon Dioxide 24 mmol/L (22-30); Chloride 100 mmol/L (98-107); Estimated Creatinine Clearance 70 ml/min; Glucose 186 mg/dl (70-99); Potassium 4.2 mmol/L (3.5-5.1); Sodium 129 mmol/L (135-145); eGFR > 60.00
[2024-10-23] MEDS: NSS 1000 IV (09:35)
[2024-10-23 09:59] LABS: Urine Character Clear (Clear)
[2024-10-23] MEDS: ZOSYN 50 IV ×3 (10:00→21:43)
[2024-10-23] MEDS: VANCOCIN 540 MG IV (10:47)
[2024-10-23 10:48] LABS: Urine White Cell 16-20 /HPF (0-5)
[2024-10-23 11:24] LABS: Glucose - Point of Care 208 mg/dl (70-99)
--- NOTE | 2024-10-23 13:10 | PHA.VAN.IN ---
Assessment
- Assessment
Renal Function: Appears similar to baseline
Maximum Temperature: 98.2
Minimum Temperature: 97.7
AUC Dosing Plan
- Empiric Dosing
Initial / Loading Dose: vancomycin 2000 mg x 1
Maintenance Regimen: vancomycin 1000 mg Q12H
Estimated AUC (mcg*h/mL): 587
Estimated Peak (mcg*h/mL): 33.6
Estimated Trough (mcg/ml): 16.9
Estimated Half Life (H): 11.1
- Monitoring
No levels ordered at this time: consider levels in next few days
Pharmacokinetics Vancomycin I
- -
Patient Age: 84
Patient Sex: Female
Vancomycin Day #: 1
Indication: Bacteremia
Requesting Provider: Dr. Julian
Pertinent Antimicrobial Allergies:
sulfa
Height / Weight:
Height 5 ft 2 in
Actual Weight 80.739 kg
IBW in k.1
Adjusted BW in k.4
Pertinent Past Medical History: piperacillin/tazobactam
- Vital Signs / Lab Results
Temp Pulse Resp BP Pulse Ox
97.8 F 113 14 143/95 93
10/23/24 07:35 10/23/24 07:35 10/23/24 07:35 10/23/24 07:35 10/23/24 07:35
Lab Results - Hematology
10/20/24 10/23/24
19:13 08:44
WBC 6.2 14.3 H
Lab Results - Chemistry
10/20/24 10/22/24 10/23/24
19:13 08:05 08:43
BUN 14 11 11
Creatinine 0.9 0.6 0.6
Estimated Creat Clear 47 70 70
Albumin 4.4
Lab Results - Urine
10/21/24 10/23/24
00:44 09:31
Urine Nitrite (Reflex) Negative Negative
Leukocyte Esterase Rfl Negative 3+ A
Urine WBC (Reflex) 0-2 16-20 A
Ur Squamous Epith Cells 6-10 6-10
Urine Bacteria (Reflex) Few A Few A
[2024-10-23 15:00] VITALS: BP 145/84
[2024-10-23 16:06] LABS: Glucose - Point of Care 187 mg/dl (70-99)
[2024-10-23] MEDS: NOVOLOG FLEXPEN-LOW RESISTANCE 1 UNITS SC (16:37)
[2024-10-23 20:47] LABS: Glucose - Point of Care 262 mg/dl (70-99)
[2024-10-23] MEDS: TYLENOL 650 MG PO (20:51)
[2024-10-23 23:00] VITALS: BP 149/81
[2024-10-24] VITALS (10 sets, daily range): BP systolic 136–169; BP diastolic 69–95; BMI 33.6
[2024-10-24] MEDS: TYLENOL PO ×4 (00:14→15:33)
[2024-10-24] MEDS: NSS 1000 IV ×2 (01:19→17:19)
[2024-10-24] MEDS: NSS IV (01:19)
[2024-10-24] MEDS: ZOSYN 50 IV ×2 (03:57→12:33)
[2024-10-24] MEDS: VANCOCIN 200 IV (05:27)
[2024-10-24 06:54] LABS: Hematocrit 20.5 % (37.0-47.0); Hemoglobin 7.1 g/dL (12.0-16.0); Mean Corp Hgb Conc. 34.6 g/dL (33.0-37.0); Mean Corpuscular Volume 99.0 fL (81.0-99.0); Platelet Count 215 10^3/uL (130-400); Red Cell Dist. Width 14.2 % (11.5-14.5)
[2024-10-24 07:02] LABS: Blood Urea Nitrogen 9 mg/dl (7-17); Calcium 7.9 mg/dl (8.4-10.2); Carbon Dioxide 22 mmol/L (22-30); Chloride 103 mmol/L (98-107); Estimated Creatinine Clearance 71 ml/min; Glucose 177 mg/dl (70-99); Potassium 3.9 mmol/L (3.5-5.1); Sodium 132 mmol/L (135-145); eGFR > 60.00
--- NOTE | 2024-10-24 07:19 | W.PN.HOSP.TC ---
Today's Communication/Plan
-
see plan
Assessment / Plan
Assessment / Plan
Gen: NAD, AAOx3
Eyes: EOMI, PERRLA, no scleral icterus.
Neck: supple.
CV: RRR, +S1/S2, no m/r/g.
Resp: CTAB anteriorly, no rales, wheezes, or rhonchi.
Abd: +BS, soft, NT, ND
Neuro: CN 2-12 intact, non-focal.
Psych: calm but confused
L hip/femur Xray:
1. ACUTE REVERSE OBLIQUITY TYPE INTERTROCHANTERIC FRACTURE of the LEFT PROXIMAL FEMUR.
2. Mild bilateral osteoarthritis of the hips.
3. 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
4. Previous L4 laminectomy.
CXR: Mild bibasilar subsegmental atelectasis, right greater than left.
SIRS:
-leukocytosis and tachycardia (but no fever)
-Pt had acute encephalopathy, likely a combination of acute metabolic encephalopathy and hospital acquired delirium, now imprvoed
-U/A with 16-20 WBC, 3+ LE, NEG Nitrite but also 6-10 squamous, possibly UTI, follow UCx
-CXR without PNA
-follow BCxs
-cont IVFs for now but can stop today if pt eating well
-cont empiric Vanco/Zosyn
Acute blood loss anemia due to surgery (acute on chronic anemia):
-transfuse 2U pRBCs for Hb 7.1
Acute closed Left hip Fx s/p Mechanical fall:
-Osteoporosis was an underlying comorbidity that contributed to the patient's fracture
-s/p Left subtrochanteric hip fracture reduction and fixation with cephalomedulary nail on 10/21/24
-ortho following
-WBAT, ASA 325mg daily x 4 weeks
Other problems:
DM2: a1c 6.7%, SSI/accuchecks
Hyponatremia, mild, trend
FULL/SCDs
Dispo: hopefully d/c on 10/26/24
Anticipated Discharge: 24 - 48 hours
Subjective/Interval History
-
Date of Service: October 24, 2024
No new complaints. Denies CP/SOB/abd pain.
Objective Data
-
Labs:
Laboratory Results
10/24/24
05:40
WBC 13.1 H
Hgb 7.1 L
Hct 20.5 L*
Plt Count 215
Sodium 132 L
Potassium 3.9
Chloride 103
Carbon Dioxide 22
BUN 9
Creatinine 0.6
Glucose 177 H
Calcium 7.9 L
Vital Signs:
Vital Signs
Temp Pulse Resp BP Pulse Ox
99 F 107 18 149/81 92
10/23/24 23:00 10/23/24 23:00 10/23/24 23:00 10/23/24 23:00 10/23/24 23:00
I&O
10/23/24 10/24/24 10/25/24
06:59 06:59 06:59
Intake Total 1480 / 1480 3330 / 3330
Output Total 700 / 700 2625 / 2625
Balance 780 / 780 705 / 705
[2024-10-24 07:47] LABS: Glucose - Point of Care 231 mg/dl (70-99)
--- NOTE | 2024-10-24 08:24 | PHA.VAN.FU ---
Vancomycin Assessment / Plan
- Assessment
Renal Function: Stable
WBC's are: Trending Down
In the past 24 hrs, patient has been: Afebrile
Concomitant Antimicrobials: piparacillin/tazobactam
- Dosing Plan
Continue: vancomycin 1000 mg q12H
- Monitoring Plan
No level(s) ordered at this time: consider levels in next few days
- Follow Up
Pharmacy will continue to follow.
Vancomycin Follow UP
- -
Patient Age: 84
Patient Sex: Female
Vancomycin Day #: 2
Indication: Bacteremia
Requesting Provider: Dr. Julian
Pertinent Antimicrobial Allergies:
sulfa
Height / Weight:
Height 5 ft 2 in
Actual Weight 83.325 kg
IBW in k.1
Adjusted BW in k.4
Pertinent Past Medical History: piperacillin/tazobactam
- Vital Signs / Lab Results
Temp Pulse Resp BP Pulse Ox
98.7 F 102 16 166/95 94
10/24/24 07:05 10/24/24 08:14 10/24/24 07:05 10/24/24 08:14 10/24/24 07:05
Lab Results - Hematology
10/23/24 10/24/24
08:44 05:40
WBC 14.3 H 13.1 H
Lab Results - Chemistry
10/22/24 10/23/24 10/24/24
08:05 08:43 05:40
BUN 11 11 9
Creatinine 0.6 0.6 0.6
Estimated Creat Clear 70 70 71
Lab Results - Urine
10/23/24
09:31
Urine Nitrite (Reflex) Negative
Leukocyte Esterase Rfl 3+ A
Ur Squamous Epith Cells 6-10
[2024-10-24] MEDS: NOVOLOG FLEXPEN-LOW RESISTANCE 2 UNITS SC (08:31)
[2024-10-24] MEDS: ASPIRIN 325 MG PO (08:31)
[2024-10-24] MEDS: COLACE 100 MG PO ×2 (08:31→19:23)
[2024-10-24] MEDS: TYLENOL 650 MG PO ×4 (08:32→23:17)
[2024-10-24] MEDS: SENOKOT PO (08:32)
[2024-10-24] MEDS: NIZORAL 2% CREAM 1 APPLIC TOPICAL (08:41)
[2024-10-24 11:49] LABS: Glucose - Point of Care 188 mg/dl (70-99)
--- NOTE | 2024-10-24 12:36 | W.PN.UPDATE ---
Update Note
Progress Note Update
UCx NG (UTI has been ruled out)
BCxs NGTD
-stop abx and observe
[2024-10-24] MEDS: NOVOLOG FLEXPEN-LOW RESISTANCE 1 UNITS SC (12:41)
[2024-10-24 16:25] LABS: Glucose - Point of Care 149 mg/dl (70-99)
[2024-10-24] MEDS: NOVOLOG FLEXPEN-LOW RESISTANCE SC (16:41)
[2024-10-24] MEDS: SENOKOT 17.2 MG PO (19:23)
[2024-10-24 21:56] LABS: Glucose - Point of Care 167 mg/dl (70-99)
[2024-10-24] MEDS: DILAUDID 0.5 MG IV (22:48)
[2024-10-25] MEDS: TYLENOL PO ×2 (03:33→23:41)
[2024-10-25 06:24] LABS: Hematocrit 25.5 % (37.0-47.0); Hemoglobin 9.0 g/dL (12.0-16.0); Mean Corp Hgb Conc. 35.3 g/dL (33.0-37.0); Mean Corpuscular Volume 94.4 fL (81.0-99.0); Platelet Count 217 10^3/uL (130-400); Red Cell Dist. Width 16.9 % (11.5-14.5)
[2024-10-25 06:41] LABS: Blood Urea Nitrogen 9 mg/dl (7-17); Calcium 8.2 mg/dl (8.4-10.2); Carbon Dioxide 26 mmol/L (22-30); Chloride 107 mmol/L (98-107); Estimated Creatinine Clearance 71 ml/min; Glucose 153 mg/dl (70-99); Potassium 3.9 mmol/L (3.5-5.1); Sodium 134 mmol/L (135-145); eGFR > 60.00
[2024-10-25 07:00] VITALS: BP 178/92
[2024-10-25 07:14] LABS: Glucose - Point of Care 163 mg/dl (70-99)
[2024-10-25] MEDS: NOVOLOG FLEXPEN-LOW RESISTANCE 1 UNITS SC ×2 (08:48→16:40)
[2024-10-25] MEDS: COLACE PO (08:49)
[2024-10-25] MEDS: ASPIRIN 325 MG PO (08:49)
[2024-10-25] MEDS: NIZORAL 2% CREAM 1 APPLIC TOPICAL (08:49)
[2024-10-25] MEDS: TYLENOL 650 MG PO ×4 (08:50→19:46)
[2024-10-25] MEDS: SENOKOT PO (08:50)
[2024-10-25 09:50] VITALS: BP 163/91; PULSE 98
[2024-10-25 10:26] VITALS: BP 163/91; PULSE 98
[2024-10-25 11:37] LABS: Glucose - Point of Care 220 mg/dl (70-99)
[2024-10-25] MEDS: LIDOCAINE 4% PATCH 3 PATCH TOPICAL (13:01)
[2024-10-25] MEDS: NOVOLOG FLEXPEN-LOW RESISTANCE 2 UNITS SC (13:03)
--- NOTE | 2024-10-25 13:13 | CM ---
CM following re: discharge planning.
Reviewed pt's chart, met with pt and pt's son Zackary at bedside.
Both pt and her son are aware that all requested SNFs offered a bed and pt's son stated that pt already accepted to move to [facility] apartment and both pt and her son requested [facility] SNF for a short term rehab.
CM spoke to [facility] director selection and administration and she is confirming a bed availability for tomorrow.
D/C plan: [facility] for a short term rehab.
CM will follow to assist pt with discharge to [facility].
--- NOTE | 2024-10-25 14:01 | W.PN.HOSP.TC ---
Today's Communication/Plan
-
Assessment / Plan
Assessment / Plan
Gen: NAD, AAOx3
Eyes: EOMI, PERRLA, no scleral icterus.
Neck: supple.
CV: RRR, +S1/S2, no m/r/g.
Resp: CTAB anteriorly, no rales, wheezes, or rhonchi.
Abd: +BS, soft, NT, ND
MSK: Left hip surgical site with mild strikethrough
Neuro: CN 2-12 intact, non-focal.
Psych: calm and cooperative
L hip/femur Xray:
1. ACUTE REVERSE OBLIQUITY TYPE INTERTROCHANTERIC FRACTURE of the LEFT PROXIMAL FEMUR.
2. Mild bilateral osteoarthritis of the hips.
3. 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
4. Previous L4 laminectomy.
CXR: Mild bibasilar subsegmental atelectasis, right greater than left.
SIRS:
-leukocytosis and tachycardia (but no fever), both resolving
-Pt had acute encephalopathy, likely a combination of acute metabolic encephalopathy and hospital acquired delirium, now resolved
-U/A with 16-20 WBC, 3+ LE, NEG Nitrite but also 6-10 squamous, urine cultures negative, UTI ruled out
-CXR without PNA
- Blood and urine cultures negative, discontinued antibiotics
- Adequate p.o. intake, discontinued IVF
Acute blood loss anemia due to surgery (acute on chronic anemia):
-transfused 2U pRBCs for Hb 7.1, hemoglobin remained stable at 9.0 today
- No evidence of active bleeding, continue to monitor
Acute closed Left hip Fx s/p Mechanical fall:
-Osteoporosis was an underlying comorbidity that contributed to the patient's fracture, start calcium supplementation
-s/p Left subtrochanteric hip fracture reduction and fixation with cephalomedulary nail on 10/21/24
-ortho following
-WBAT, ASA 325mg daily x 4 weeks
- Multimodal pain control, PPI while on high-dose aspirin
- Anticipate dispo to SNF in the next 24 hours
Other problems:
DM2: a1c 6.7%, SSI/accuchecks
Hyponatremia, mild, trend
FULL/SCDs
Dispo: hopefully d/c on 10/26/24
Anticipated Discharge: Within 24 hours
Subjective/Interval History
-
Date of Service: October 25, 2024
Patient was seen and examined at bedside this morning. Hemoglobin stable after 2 units PRBCs. Remains motivated to continue physical therapy although says she feels very deconditioned.
Objective Data
-
Labs:
Laboratory Results
10/25/24
05:22
WBC 12.5 H
Hgb 9.0 L D
Hct 25.5 L
Plt Count 217
Sodium 134 L
Potassium 3.9
Chloride 107
Carbon Dioxide 26
BUN 9
Creatinine 0.6
Glucose 153 H
Calcium 8.2 L
Vital Signs:
Vital Signs
Temp Pulse Resp BP Pulse Ox
98.4 F 96 14 178/92 95
10/25/24 07:00 10/25/24 07:00 10/25/24 07:00 10/25/24 07:00 10/25/24 08:45
I&O
10/24/24 10/25/24 10/26/24
06:59 06:59 06:59
Intake Total 3330 / 3330 2375 / 2375 1258 / 1258
Output Total 2625 / 2625 3625 / 3625 1750 / 1750
Balance 705 / 705 -1250 / -1250 -492 / -492
Review of Systems
-
History Source: Patient
All other systems: Reviewed and negative
Constitutional: Reports Weakness
Musculoskeletal: Reports Joint Pain (Bilateral knee and left hip pain)
Physical Exam
-
General: No Apparent Distress
[2024-10-25 15:00] VITALS: BP 139/62
[2024-10-25 16:04] LABS: Glucose - Point of Care 162 mg/dl (70-99)
[2024-10-25] MEDS: SENOKOT 17.2 MG PO (19:46)
[2024-10-25] MEDS: COLACE 100 MG PO (19:46)
[2024-10-25] MEDS: REMOVE LIDOCAINE PATCH 3 PATCH REMOVE (19:47)
[2024-10-25 21:24] LABS: Glucose - Point of Care 170 mg/dl (70-99)
[2024-10-25] MEDS: DILAUDID 0.5 MG IV (21:25)
[2024-10-25 23:05] VITALS: BP 160/85
[2024-10-26] MEDS: TYLENOL 650 MG PO ×4 (04:08→16:38)
[2024-10-26 07:02] LABS: Glucose - Point of Care 142 mg/dl (70-99)
[2024-10-26 07:05] VITALS: BP 152/81
[2024-10-26 07:19] LABS: Blood Urea Nitrogen 10 mg/dl (7-17); Calcium 8.4 mg/dl (8.4-10.2); Carbon Dioxide 26 mmol/L (22-30); Chloride 106 mmol/L (98-107); Estimated Creatinine Clearance 71 ml/min; Glucose 160 mg/dl (70-99); Potassium 3.7 mmol/L (3.5-5.1); Sodium 134 mmol/L (135-145); eGFR > 60.00
[2024-10-26] MEDS: NIZORAL 2% CREAM 1 APPLIC TOPICAL (08:14)
[2024-10-26] MEDS: ASPIRIN 325 MG PO (08:15)
[2024-10-26] MEDS: COLACE 100 MG PO (08:15)
[2024-10-26] MEDS: PROTONIX 20 MG PO (08:15)
[2024-10-26] MEDS: OSCAL CAL 500 500 MG PO (08:15)
[2024-10-26] MEDS: LIDOCAINE 4% PATCH 3 PATCH TOPICAL (08:16)
[2024-10-26] MEDS: SENOKOT 17.2 MG PO (08:16)
[2024-10-26] MEDS: NOVOLOG FLEXPEN-LOW RESISTANCE SC (08:26)
--- NOTE | 2024-10-26 09:55 | CM ---
CM following re: discharge planning.
Reviewed pt's chart, met with pt and spoke to pt's son Zackary over the phone.
According to MD pt is medically stable to be discharged today. Both pt and her son are aware, expressed their agreement. IMM reviewed, placed on chart, pt has a copy.
CM spoke to [facility] admissions advisor and she confirmed that they do have a bed available and pt is accepted for admission today.
[facility] initiated an auth from [employer] for SNF level of care at [facility], spoke to patient case manager Minda and based on pt's clinical pt is approved for 7 initial days from today 10/26/24 till 11/01/24 with LCD and NRD 11/01/24. Auth: [id number]. For review:
[phone].
Auth info forwarded to [facility] admissions advisor.
to arrange ambulance BLS. PMNC completed and left with . Ambulance auth for Acute care ambulance obtained: [id number]
[facility] nursing report: [phone]
Discharge instructions fax: [phone]
D/C plan: [facility].
[2024-10-26 10:42] LABS: Glucose - Point of Care 234 mg/dl (70-99)
[2024-10-26] MEDS: NOVOLOG FLEXPEN-LOW RESISTANCE 2 UNITS SC (11:50)
--- NOTE | 2024-10-26 12:12 | W.DCSUMMARY ---
Discharge Summary
Discharge Data
Date of Admission: 10/20/24
Date of Discharge: 10/26/24
Total time spent discharging patient (in min): 45
-
Pending Results: No
Hospital Course
Ms. Stokes is an 84-year-old female with a medical history of type 2 diabetes mellitus (diet controlled, not on medication) who presented with a left hip fracture after falling out of a chair. She was brought to the OR with orthopedics on 10/21/2024
for ORIF with cephalomedullary nail placement. She required transfusion of 2 units PRBCs postoperatively with recovery of her hemoglobin and no evidence of active bleeding. She was started on calcium supplementation for osteoporosis. She is
weightbearing as tolerated and will require long-term facility for ongoing therapy after hospital discharge. She will need to follow-up with orthopedics in the outpatient setting. She will be continued on full-strength aspirin for 4 weeks
postoperatively for blood clot prevention. She will be continued on a proton pump inhibitor for acid suppression while on high-dose aspirin. She had a postoperative episode of encephalopathy which was likely secondary to anesthesia. Cultures and
imaging were negative for evidence of infection. Her mental status has returned to baseline and she does not require antibiotics. Her hemoglobin A1c during this admission was 6.7%. Her blood glucose has been well-controlled during this
hospitalization with sliding scale insulin. She will be started on low-dose metformin at time of discharge. It is recommended that she continue on a diabetic diet and follow-up with her primary care physician for further monitoring and dosage
adjustments as needed. She was medically stable at time of hospital discharge.
Gen: NAD, AAOx3
Eyes: EOMI, PERRLA, no scleral icterus.
Neck: supple.
CV: RRR, +S1/S2, no m/r/g.
Resp: CTAB anteriorly, no rales, wheezes, or rhonchi.
Abd: +BS, soft, NT, ND
MSK: Left hip surgical site with mild strikethrough
Neuro: CN 2-12 intact, non-focal.
Psych: calm and cooperative
Discharge Plan
-
Patient Disposition: Long Term/SNF
Discharge Diagnosis/Procedures: Left hip fracture associated with osteoporosis, anemia requiring transfusions
Diet: Diabetic, Carb Controlled
Activity: As tolerated and With Walker
Driving Restrictions: No driving
Activity Restrictions/Additional Instructions:
Wound Care Instructions
L leg and feet: wash with soap and water, apply Nizoral cream daily.
Follow up with manager group if fungal rash does not clear up
Ms. Stokes is an 84-year-old female with a medical history of type 2 diabetes mellitus (diet controlled, not on medication) who presented with a left hip fracture after falling out of a chair. She was brought to the OR with orthopedics on 10/21/2024
for ORIF with cephalomedullary nail placement. She required transfusion of 2 units PRBCs postoperatively with recovery of her hemoglobin and no evidence of active bleeding. She was started on calcium supplementation for osteoporosis. She is
weightbearing as tolerated and will require long-term facility for ongoing therapy after hospital discharge. She will need to follow-up with orthopedics in the outpatient setting. She will be continued on full-strength aspirin for 4 weeks
postoperatively for blood clot prevention. She will be continued on a proton pump inhibitor for acid suppression while on high-dose aspirin. She had a postoperative episode of encephalopathy which was likely secondary to anesthesia. Cultures and
imaging were negative for evidence of infection. Her mental status has returned to baseline and she does not require antibiotics. Her hemoglobin A1c during this admission was 6.7%. Her blood glucose has been well-controlled during this
hospitalization with sliding scale insulin. She will be started on low-dose metformin at time of discharge. It is recommended that she continue on a diabetic diet and follow-up with her primary care physician for further monitoring and dosage
adjustments as needed. She was medically stable at time of hospital discharge.
Referrals:
Brennan Alonzo PA-C [Specified Professional Personl, Orthopedics] - in two to four weeks
Bre Huitron PA-C [Family Provider, Family Practice]
Prescriptions:
New
aspirin 325 mg Tablet
325 mg PO DAILY 28 Days Qty: 28 0RF
docusate sodium 100 mg Capsule
100 mg PO BID 10 Days Qty: 20 0RF
lidocaine 4 % Adhesive Patch,Medicated
3 patch topical DAILY 10 Days Qty: 20 0RF
calcium carbonate 500 mg calcium (1,250 mg) Tablet
500 mg PO DAILY 30 Days Qty: 30 0RF
sennosides [Lucy-leslie] 8.6 mg Tablet
17.2 mg PO BID 10 Days Qty: 40 0RF
pantoprazole 20 mg Tablet,Delayed Release (Dr/Ec)
20 mg PO DAILY 30 Days Qty: 30 0RF
oxycodone 5 mg Tablet
5 mg PO Q4HPRN PRN (Reason: mild pain) Qty: 10 0RF
acetaminophen 325 mg Tablet
650 mg PO Q4HWA 5 Days Qty: 60 0RF
metformin 500 mg tablet
500 mg PO DAILY 30 Days Qty: 30 0RF
Continued
Centrum Silver Women 8 mg iron-400 mcg-50 mcg Tablet
1 tab PO DAILY
Discharge Orders:
Discharge Patient (As Directed); Ordered 10/26/24
Ordered By: Anuj Benjamin
Discharge Date and Time
Print Language: SYRIAN
[2024-10-26 15:05] VITALS: BP 169/85
[2024-10-26 16:39] LABS: Glucose - Point of Care 191 mg/dl (70-99)
[2024-10-26] MEDS: NOVOLOG FLEXPEN-LOW RESISTANCE 1 UNITS SC (16:39)
--- NOTE | 2024-10-26 20:20 | PTCARENOTE ---
pt d/c to [facility] in [place], IV pulled, vs WNL, report called in and pt documentation given to acute care.
--- NOTE | 2024-10-26 20:22 | PTCARENOTE ---
d/c vs LUE 145/85 hr 80 r20 temp 98.2 pulse ox 96% on r/a
== END 2024-10-26 20:19 | DRG 480 ==
LOC: 2 SOUTH 21:19
PROVIDERS: Internal Medicine; ADMITTING PHYSICIAN Internal Medicine; ATTENDING PHYSICIAN Internal Medicine; CONSULT PHYSICIAN Orthopaedic Surgery; EMERGENCY PHYSICIAN Student in an Organized Health Care Education/Training Program; FAMILY PHYSICIAN Physician Assistant Medical
PROC: 0QS706Z Reposition Left Upper Femur with Intramedullary Internal Fixation Device, Open Approach (ICD-10-PCS; 2024-10-21)
PROC: 30233N1 Transfusion of Nonautologous Red Blood Cells into Peripheral Vein, Percutaneous Approach (ICD-10-PCS; 2024-10-24)
DX: M80.052A Age-related osteoporosis with current pathological fracture, left femur, initial encounter for fracture (principal); G93.41 Metabolic encephalopathy; D62 Acute posthemorrhagic anemia; R65.10 Systemic inflammatory response syndrome (SIRS) of non-infectious origin without acute organ dysfunction; F05 Delirium due to known physiological condition; E87.1 Hypo-osmolality and hyponatremia; J98.11 Atelectasis; G89.29 Other chronic pain; M54.9 Dorsalgia, unspecified; E11.9 Type 2 diabetes mellitus without complications; M16.0 Bilateral primary osteoarthritis of hip; W07.XXXA Fall from chair, initial encounter; Y93.89 Activity, other specified; Y92.9 Unspecified place or not applicable; Z90.710 Acquired absence of both cervix and uterus; Z90.49 Acquired absence of other specified parts of digestive tract; Z88.2 Allergy status to sulfonamides; Z91.018 Allergy to other foods
CPT/HCPCS: 71045; 73502; 73552; 76000; 80048; 80053; 81003; 81015; 82962; 83036; 85014; 85018; 85025; 85027; 85610; 85730; 86850; 86900; 86901; 86920; 87040; 87086; 93005; 96374; 96375; 96376; 97129; 97162; 97166; 97530; 97535; 99285; C1713; P9016

== ENCOUNTER → 2024-10-29 11:19 | Outpatient (REF) | payer OTHER, SELFPAY ==
[2024-10-29 11:39] LABS: Hematocrit 23.8 % (37.0-47.0); Hemoglobin 8.2 g/dL (12.0-16.0); Mean Corp Hgb Conc. 34.5 g/dL (33.0-37.0); Mean Corpuscular Volume 96.7 fL (81.0-99.0); Platelet Count 319 10^3/uL (130-400); Red Cell Dist. Width 15.9 % (11.5-14.5)
[2024-10-29 11:49] LABS: ALT (SGPT) 34 U/L (0-35); AST (SGOT) 43 U/L (14-36); Albumin 3.2 g/dl (3.5-5.0); Alkaline Phosphatase 102 U/L (38-126); Blood Urea Nitrogen 12 mg/dl (7-17); Calcium 8.3 mg/dl (8.4-10.2); Carbon Dioxide 27 mmol/L (22-30); Chloride 103 mmol/L (98-107); Glucose 135 mg/dl (70-99); Magnesium 1.9 mg/dl (1.6-2.3); Potassium 3.9 mmol/L (3.5-5.1); Sodium 133 mmol/L (135-145); Total Protein 5.4 g/dl (6.3-8.2); eGFR > 60.00
== END ==
LOC: OLABWHC 11:19
PROVIDERS: ATTENDING PHYSICIAN Family Medicine
DX: E11.9 Type 2 diabetes mellitus without complications (principal); S72.001A Fracture of unspecified part of neck of right femur, initial encounter for closed fracture
CPT/HCPCS: 36415; 80053; 83735; 85027

== ENCOUNTER → 2024-11-04 11:52 | Outpatient (REF) | payer OTHER, SELFPAY ==
[2024-11-04 13:06] LABS: Hematocrit 24.3 % (37.0-47.0); Hemoglobin 8.2 g/dL (12.0-16.0); Mean Corp Hgb Conc. 33.7 g/dL (33.0-37.0); Mean Corpuscular Volume 98.0 fL (81.0-99.0); Platelet Count 487 10^3/uL (130-400); Red Cell Dist. Width 16.5 % (11.5-14.5)
== END ==
LOC: OLABWHC 11:52
PROVIDERS: ATTENDING PHYSICIAN Family Medicine
DX: S72.142D Displaced intertrochanteric fracture of left femur, subsequent encounter for closed fracture with routine healing (principal); D62 Acute posthemorrhagic anemia
CPT/HCPCS: 36415; 85027

== ENCOUNTER → 2024-11-16 11:35 | Outpatient (REF) | payer OTHER, SELFPAY ==
[2024-11-16 13:25] LABS: Hematocrit 20.3 % (37.0-47.0); Hemoglobin 6.6 g/dL (12.0-16.0); Mean Corp Hgb Conc. 32.5 g/dL (33.0-37.0); Mean Corpuscular Volume 100.5 fL (81.0-99.0); Platelet Count 446 10^3/uL (130-400); Red Cell Dist. Width 16.9 % (11.5-14.5)
[2024-11-16 14:23] LABS: Blood Urea Nitrogen 5 mg/dl (7-17); Calcium 8.5 mg/dl (8.4-10.2); Carbon Dioxide 26 mmol/L (22-30); Chloride 102 mmol/L (98-107); Glucose 135 mg/dl (70-99); Potassium 4.5 mmol/L (3.5-5.1); Sodium 132 mmol/L (135-145); eGFR > 60.00
[2024-11-16 20:11] LABS: Iron 55 ug/dl (37-170)
[2024-11-16 20:21] LABS: Total Iron Binding Capacity 270 ug/dl (265-497)
[2024-11-16 20:48] LABS: Ferritin 280.0 ng/ml (11.1-264.0)
[2024-11-16 21:02] LABS: Vitamin B12 333 pg/ml (239-931)
== END ==
LOC: OLABWHC 11:35
PROVIDERS: ATTENDING PHYSICIAN Family Medicine
DX: S72.142D Displaced intertrochanteric fracture of left femur, subsequent encounter for closed fracture with routine healing (principal); D64.9 Anemia, unspecified
CPT/HCPCS: 36415; 80048; 82607; 82728; 83540; 83550; 85027

== ENCOUNTER 2024-11-16 19:30 | Inpatient (IN) | payer OTHER, SELFPAY ==
[2024-11-16 15:55] VITALS: BMI 30.8
[2024-11-16 16:00] VITALS: BP 135/65
[2024-11-16 17:00] VITALS: BP 142/68
--- NOTE | 2024-11-16 17:50 | ED.GENMED ---
History of Present Illness
General
Chief Complaint: Abnormal Lab Value
Source: patient and spouse
Exam Limitations: none
Time Seen by Provider: 11/16/24 16:42
Nursing documentation reviewed up to this point in time: agreed with
History of Present Illness
History of Present Illness:
Note:
CHIEF COMPLAINT(S)
Rectal bleeding
HISTORY OF PRESENT ILLNESS
The patient is an 84-year-old female presenting with blood in stool, taking aspirin to prevent blood clots. Hb 6 earlier today.
REVIEW OF SYSTEMS
-
- Neurologic: Alert but disoriented to time.
- Digestive: Previous occurrence of blood in stool.
- Cardiovascular: History of blood clot treatment and precaution.
PHYSICAL EXAM
- General: No acute distress observed.
- Ear, Nose, and Tongue: Pale mucous membranes noted.
- Neck: No jugular vein distention observed.
- Cardiovascular: Regular heart sounds with S1 and S2; no additional sounds detected.
- Pulmonary: No respiratory distress; clear breath sounds bilateral.
- Abdominal: Soft, non-tender, and non-distended.
- Rectal Exam: Guaiac positive with brown stool present.
- Extremities: Mild edema in the left leg; normal pulses in all extremities.
- Neurologic: Alert,oriented.
PROBLEM LIST
- Acute Problems: low blood count, blood in stool, positive guaiac test.
- Chronic Problems: History of blood clot treatment/prevention.
PLAN
A rectal examination was performed, resulting in a guaiac positive test, prompting further investigation.
DIFFERENTIAL DIAGNOSIS
The Differential Diagnosis includes, in no particular order and is not limited to:
1. Anemia
2. Gastrointestinal bleeding
3. Deep vein thrombosis
4. Pulmonary embolism
5. Medication side effects
6. Cognitive disorder related to age
7. Electrolyte imbalance
8. Dehydration
9. Post-surgical complications
10. Infection or sepsis
CARE-UPDATE
11/16/24 - 17:45
Patient has been admitted for observation and close monitoring. Plan to transfuse one unit of packed red blood cells for stabilization. No new bleeding episodes noted at this time. Hemoglobin levels will be re-evaluated post-transfusion. Consult
with gastroenterology for further endoscopic evaluation to identify and manage the source of GI bleed. Ensure routine vitals and hemoglobin checks every 4 hours. Patient to remain nil per os (NPO) until further gastroenterological assessment is
completed.
Disposition:
SUMMARY OF ENCOUNTER
The patient, an 84-year-old female, was seen in the emergency department with rectal bleeding. She reported being unsure about her diagnosis post-surgery related to blood clots. She presented with symptoms including occurrence of blood in her
stool. Upon examination, her mucous membranes were pale, and a rectal exam was guaiac positive with brown stool, indicating a potential gastrointestinal bleed. Given the findings suggestive of GI bleed and low blood count, the patient was found to
have blood loss anemia.
DISPOSITION
Admit to hospitalist
ASSESSMENT
The patient is likely experiencing blood loss anemia secondary to a potential gastrointestinal bleed, contributing to her confusion and low blood count.
PLAN
The plan includes admission to the hospital under the care of a hospitalist. A blood transfusion of one unit of packed red blood cells is to be administered for stabilization. Her hemoglobin levels will be re-evaluated post-transfusion. A
consultation with gastroenterology for further endoscopic evaluation to identify and manage the source of the gastrointestinal bleed is planned. The patient is to remain nil per os (NPO) until further evaluation by gastroenterology. Routine vitals
and hemoglobin checks will be conducted every 4 hours.
INDEPENDENT REVIEW OF LABS AND INTERPRETATION OF TESTS
My independent review includes the positive guaiac test result obtained during the rectal examination, which indicates the presence of blood in the stool, supporting the assessment of gastrointestinal bleeding.
MEDICAL DECISION MAKING
-Complexity of Data Reviewed: Chronic conditions affecting care [history of blood clots, potential post-surgical complications]
-The Differential Diagnosis list includes: Anemia, Gastrointestinal bleeding, Deep vein thrombosis, Pulmonary embolism, Medication side effects, Cognitive disorder related to age, Electrolyte imbalance, Dehydration, Post-surgical complications,
Infection or sepsis.
Category 1: Tests and documents reviewed include the guaiac positive test, indicating gastrointestinal bleeding.
Category 3: Discussion of management with a hospitalist for admission and coordination of care for further gastrointestinal evaluation and treatment.
DIAGNOSIS
1. Blood Loss Anemia (ICD-10: D50.0)
2. Gastrointestinal Hemorrhage (ICD-10: K92.2)
Past History
Past History
ED Past Medical History: NIDDM
ED Past Surgical History: Cholecystectomy, Gynecological (Hysterectomy) and Orthopedic (Bilateral carpal tunnel release)
Social History
Tobacco: Non-smoker
Alcohol: Occasional
Personal:
Living: with family
Family History
Family History: Diabetes; Negative CAD
Phy Exam
Physical Exam
Physical Exam:
.
Course
Orders/Labs/Results
Orders:
Orders
11/16/24 17:15
Type And Crossmatch [Type+Screen] Urgent
Vital Signs
Initial and Last Documented VS:
Initial Vital Signs
Temp
98.8 F
11/16/24 15:55
Last Documented Vital Signs
Temp Pulse Resp BP Pulse Ox
98.8 F 81 20 142/68 98
11/16/24 15:55 11/16/24 17:30 11/16/24 17:30 11/16/24 17:00 11/16/24 17:30
*Pulse Oximetry
SaO2: 98
Oxygen Mode of Delivery: Room air
Patient hypoxic: no
*Critical Care Note
Total Time (30-74mins, 75-104mins- exclusive of procedures): 30
comment:
Critical care statement: A total of 30 minutes of critical care time was provided for this patient. This includes management of unstable vital signs, evaluation of the patient at bedside, reviewing the patient's pertinent medical records, discussion
with consultants, review of old EKGs and review of pertinent medical records. This time with separate from time utilized to perform the aforementioned documented procedures
ED Attending Note
-
Portions of this chart may have been created with voice recognition software.� Occasional wrong word or��sound alike� substitutions may have occurred due to the inherent limitations of voice recognition software.
Discharge Plan
Departure
Patient Disposition: Admit
Date of Disposition: 11/16/24
Time of Disposition: 17:52
Admit to: Telemetry
Presentation/result/management discussed w/ accepting MD/DO: Hospitalist
Patient with high blood pressure during this ER visit?: Yes
Condition: Fair
Discharge Problem:
Rectal bleeding
Prescriptions:
No Action
Centrum Silver Women 8 mg iron-400 mcg-50 mcg Tablet
1 tab PO DAILY
aspirin 325 mg Tablet
325 mg PO DAILY 28 Days Qty: 28 0RF
docusate sodium 100 mg Capsule
100 mg PO BID 10 Days Qty: 20 0RF
lidocaine 4 % Adhesive Patch,Medicated
3 patch topical DAILY 10 Days Qty: 20 0RF
calcium carbonate 500 mg calcium (1,250 mg) Tablet
500 mg PO DAILY 30 Days Qty: 30 0RF
sennosides [Lucy-leslie] 8.6 mg Tablet
17.2 mg PO BID 10 Days Qty: 40 0RF
pantoprazole 20 mg Tablet,Delayed Release (Dr/Ec)
20 mg PO DAILY 30 Days Qty: 30 0RF
oxycodone 5 mg Tablet
5 mg PO Q4HPRN PRN (Reason: mild pain) Qty: 10 0RF
acetaminophen 325 mg Tablet
650 mg PO Q4HWA 5 Days Qty: 60 0RF
metformin 500 mg tablet
500 mg PO DAILY 30 Days Qty: 30 0RF
Referrals:
Yandel Estrella MD [Family Provider, Family Practice]
Interventions
Interventions:
*Risk Screen - Suicide Last Done: 11/16/24 16:17
*General Assessment Last Done: 11/16/24 16:18
*Neglect/Abuse Screening Last Done: 11/16/24 16:17
*ED- Fall Risk Assessment Last Done: 11/16/24 16:17
*ED COVID-19 Vaccine History Last Done: 11/16/24 16:18
Discharge Date and Time
Print Language: DUTCH
[2024-11-16 18:00] VITALS: BP 136/70
--- NOTE | 2024-11-16 18:15 | HPS.HSE ---
Addendum entered and electronically signed by Franco Olson MD 11/16/24 19:46:
84-year-old female comes in with abnormal labs and rectal bleeding. Patient was here for right hip fracture and was discharged on 10/26/2024. Reportedly in the rehab she was placed on Eliquis for DVT.
CVS: S1-S2 normal
Chest: CTA B/L
Abdomen: Soft, NT , Bowel sounds present
Extremities: Slight edema on the left lower extremity
# Rectal bleeding
Acute blood loss anemia secondary to GI bleed likely exacerbated by Eliquis
2 units of packed red blood cells
Check iron studies
Follow H&H every 8
Clear liquid diet tonight and n.p.o. after midnight
GI evaluation
# Hyponatremia-check serum and urine osmolality, urine sodium
# Recent left hip fracture-traumatic and osteoporotic status post reduction and fixation with cephalomedullary nail on 10/21/2024. Please let orthopedics know that the patient is here now as she has an appointment coming up on
# Diabetes-last hemoglobin A1c was 6.7 -continue metformin, Accu-Cheks and sliding scale.
# History of stroke
# Spinal stenosis/DJD
# DVT prophylaxis-check ultrasound of the bilateral lower extremities before we decide if we can do SCDs. Hold Eliquis
# DNR
Discussed with son at bedside
Part of this note was created using voice recognition system. Occasional wrong word or��sound alike� substitutions may have inadvertently occurred due to the inherent limitations of voice recognition software. If noted kindly bring it to my
attention for correction.
Original Note:
Family Physician
-
Family Physician: Yandel Estrella MD
Chief Complaint
-
abnormal out patient lab results
History of Present Illness
Patient is a 84-year-old female with past medical history significant for NIDDM who presented to [facility] ED for evaluation of abnormal out patient lab results. Patient reports recent hospitalization for fractured hip with repair 10/20/2024 - 10/26/2024
and was discharged on ASA for blood clot prevention. Patient states she was diagnosed with DVT in left leg post surgery and started on Eliquis, which she believes was held for recent anemia. Patient reports blood in stool, unable to report for how
long. States she had 3 BMs today with blood. Denies any lightheadedness, nausea, vomting, constipation or diarrhea.
Medical History
Past Medical History
Past Medical History: Reports Other
Additional Past Medical History:
NIDDM
anemia
Past Surgical History: Reports Other
Additional Past Surgical History:
left hip ORIF with cephalomedullary nail placement
cholecystectomy
hysterectomy
Bilateral carpal tunnel release
Social History
Tobacco: Non-smoker
Alcohol: Occasional
Personal:
Family History
Family History: Not pertinent
Allergies / Home Medications
Allergies reflects when Allergies were last updated in [facility].
Home Medications with original date entered in [employer]
Allergy/Medication List:
Allergies
Allergy/AdvReac Type Severity Reaction Status Date / Time
soy (Soy) Allergy Diarrhea, Verified 03/03/24 12:38
nausea
Sulfa (Sulfonamide Allergy Unknown Verified 03/03/24 12:38
Antibiotics)
(Sulfa(Sulfonamide
Antibiotics))
Home Medications
svrdtzro-ieye-neqf 8 mg-folic 400 mcg-K 50 mcg-lutein 300 mcg tablet (Centrum Silver Women) 1 tab PO DAILY 10/20/24
calcium carbonate 500 mg PO DAILY 30 days #30 tabs 10/26/24
docusate sodium 100 mg capsule 100 mg PO BID 10 days #20 caps 10/26/24
metformin 500 mg tablet 500 mg PO DAILY 30 days #30 tabs 10/26/24
oxycodone 5 mg tablet 5 mg PO Q4HPRN PRN mild pain #10 tabs 10/26/24
pantoprazole 20 mg tablet,delayed release 20 mg PO DAILY 30 days #30 tabs 10/26/24
acetaminophen 325 mg tablet 650 mg PO Q6HPRN PRN mild pain/fever >100.4F 11/16/24
apixaban 5 mg tablet 5 mg PO BID 11/16/24
bisacodyl 10 mg rectal suppository (Dulcolax (bisacodyl)) 10 mg ID DAILY PRN no BM x3 days 11/16/24
ferrous sulfate 325 mg (65 mg iron) tablet 325 mg PO DAILY 11/16/24
lidocaine 4 % topical patch 3 patch topical QPM lower back 11/16/24
sennosides 8.6 mg tablet (Lucy-leslie) 17.2 mg PO HS 11/16/24
Review of Systems
-
History Source: Patient
Constitutional: Reports No Symptoms
EENT: Reports No Symptoms
Respiratory: Reports No Symptoms
Cardiac: Reports No Symptoms
Abdomen/GI: Reports Bloody Stools
: Reports No Symptoms
Musculoskeletal: Reports No Symptoms
Skin: Reports No Symptoms
Neurological: Reports No Symptoms
Endocrine: Reports No Symptoms
Hematologic/Lymphatic: Reports No Symptoms
Psych: Reports No Symptoms
Physical Exam
Vital Signs
Vital Signs
Temp Pulse Resp BP Pulse Ox
98.8 F 81 20 142/68 98
11/16/24 15:55 11/16/24 17:30 11/16/24 17:30 11/16/24 17:00 11/16/24 17:54
Physical Exam
General: Well Developed, Well Nourished, No Apparent Distress and Comfortable
HEENT: NormoCephalic, Moist mucous membranes and Atraumatic
Respiratory: Clear and Non Labored Respirations
Cardiac: S1/S2 and Regular Rhythm
GI: Soft, Non Tender, Non Distended and Normal Bowel Sounds
Rectal: Hem Positive (per ED )
Genito-urinary: Deferred by me
Musculoskeletal: No Clubbing, No Cyanosis and No Edema
Skin: Warm
Neuro: Awake and AO x 3
Psych: Calm
Data Reviewed
-
Lab Data: Labs Reviewed by me (hgb 6.6, hct 20.3, Na+ 132)
Impression/Plan
-
IMPRESSION/PLAN:
#anemia 2/2 GI bleed
#Hx anemia
hgb 6.6, hct 20.3, Na+ 132
- Admit to telemetry
- Consult GI
- Blood consent obtained by ED
- transfuse for hgb <7.0
- 1 unit PRBCs ordered in ED
- trend h/h
#recent Hx DVT left leg
- Hold Eliquis
- Peripheral US
- SCDs for DVT prophylaxis if US negative for DVT
#NIDDM
- hold metformin while acutely ill
- AccuCheck AC & HS
- SSI
#recent left hip fracture
s/p ORIF with cephalomedullary nail placement
- continue out patient pain regimen
Code status: DNR
DVT prophylaxis: SCDs
[2024-11-16 21:20] VITALS: BP 152/76
[2024-11-16] MEDS: LIDOCAINE 4% PATCH 3 PATCH TOPICAL (22:11)
[2024-11-16] MEDS: FLUSH (NSS) 2 FLUSH IV (22:12)
[2024-11-16] MEDS: PROTONIX IV 40 MG IV (22:12)
[2024-11-16] MEDS: NSS (PRESERVATIVE FREE) 10 ML IV (22:12)
[2024-11-16 22:21] VITALS: BP 153/72
[2024-11-16 22:39] VITALS: BP 158/79
[2024-11-16 23:50] LABS: Glucose - Point of Care 135 mg/dl (70-99)
[2024-11-17] VITALS (13 sets, daily range): BP systolic 131–172; BP diastolic 70–97; PULSE 78–95; O2SAT 95
[2024-11-17] MEDS: TYLENOL 650 MG PO (01:46)
[2024-11-17] MEDS: NSS 1000 IV ×2 (04:55→15:11)
--- NOTE | 2024-11-17 05:25 | PTCARENOTE ---
Patient received from ED via stretcher and was pulled to bed by staff. She was oriented to room and surroundings. See nursing assessment for physical findings. Patient received 2 units of pRBC without S/S of a transfusion reaction. IVF as per
order. No rectal bleeding noted. No BM this shift
[2024-11-17] MEDS: PROTONIX IV 40 MG IV ×2 (07:38→19:59)
[2024-11-17] MEDS: NSS (PRESERVATIVE FREE) 10 ML IV ×2 (07:38→19:59)
[2024-11-17] MEDS: FEOSOL 325 MG PO (07:39)
[2024-11-17] MEDS: THERAGRAN 1 TABLET PO (07:39)
[2024-11-17] MEDS: OSCAL CAL 500 500 MG PO (07:39)
[2024-11-17] MEDS: REMOVE LIDOCAINE PATCH 3 PATCH REMOVE (07:39)
[2024-11-17] MEDS: NSS IV (07:42)
[2024-11-17 07:44] LABS: Glucose - Point of Care 134 mg/dl (70-99)
[2024-11-17 08:05] LABS: Hematocrit 26.7 % (37.0-47.0); Hemoglobin 9.1 g/dL (12.0-16.0); Mean Corp Hgb Conc. 34.1 g/dL (33.0-37.0); Mean Corpuscular Volume 93.0 fL (81.0-99.0); Platelet Count 390 10^3/uL (130-400); Red Cell Dist. Width 18.0 % (11.5-14.5)
[2024-11-17 08:22] LABS: Blood Urea Nitrogen 7 mg/dl (7-17); Calcium 9.1 mg/dl (8.4-10.2); Carbon Dioxide 24 mmol/L (22-30); Chloride 104 mmol/L (98-107); Estimated Creatinine Clearance 68 ml/min; Glucose 123 mg/dl (70-99); Potassium 4.4 mmol/L (3.5-5.1); Sodium 134 mmol/L (135-145); eGFR > 60.00
--- NOTE | 2024-11-17 09:52 | CM ---
Addendum entered by Sarah Maharaj 11/17/24 13:39:
Referral sent to [facility] for SNF
Plan: [facility] to complete rehab from fx hip.
Addendum entered by Sarah Maharaj 11/17/24 10:58:
Per Liaison at [facility], patient was in the SNF at [facility], Liaison to confirm patient current status.
Original Note:
IA completed. IMM given and placed on chart. Pt has been living in an in-law apt with her son. Has recently moved to [facility]. Independent in ADLs. No Hx of VN or SNF. Uses rolling walker and has grab bars. Verified PCP, Rx and drug coverage.
Plan: Transfer to [facility], no needs
PCP: Yandel Estrella
Rx [facility] in [place]
[2024-11-17 12:19] LABS: Glucose - Point of Care 122 mg/dl (70-99)
--- NOTE | 2024-11-17 12:22 | CON.GI ---
Addendum entered and electronically signed by Hannah Powers MD 11/17/24 17:44:
I saw and examined the patient.
The PHARMACEUTICAL DETAILER or PA's note was reviewed and I agree with the note.
Comment: 84-year-old female with multiple medical problems including hypertension, diabetes, osteoarthritis, history of TIA who was admitted to the hospital in October for left hip fracture status post ORIF, postop ? DVT, started on Eliquis at [facility] but sent to the ER for evaluation of anemia noted on outpatient labs. On admission, hemoglobin was noted to be 6.6, she received 2 units of packed red blood cells and hemoglobin now 9.8. Reviewing recent hospital stay, she did
receive 2 units of packed red blood cells again on 24 October. Baseline hemoglobin since 2022 between 9.2 and 11.7. Iron studies including ferritin without any iron deficiency other labs-total bilirubin of 1.5 and AST of 43, peripheral vascular
ultrasound in the emergency room negative for DVT.
Patient denies any abdominal pain, nausea or vomiting. Denies any constipation, diarrhea, blood in the stool or black stool. Denies any NSAID use. In the ER she was noted to have heme positive brown stool.
Abdomen-soft, nontender and nondistended, rectal exam showed heme positive brown stool
- Anemia with normal iron indices but clearly heme positive and previous history of anemia
Rule out ulcer disease, angiectasia's, colon polyps, cannot rule out colon cancer versus other
Patient's last colonoscopy was in 2008 PCPs records, not available to review and patient has been declining colonoscopies as per PCP charting.
I reviewed in detail with the patient regarding her anemia and possible etiologies, evaluation including upper endoscopy and colonoscopy but patient wants to hold off as she is not interested in pursuing any endoscopy evaluation. I did reinforce to
patient that this will be a recurrent issue anemia and low blood counts needing hospital visits. Patient understands and still declines procedures.
I did discuss with patient's son as well, he understands.
Continue pantoprazole 40 mg twice a day for now, monitor H&H and transfuse if needed. Monitor bowel movements.
Currently on clear liquid diet, will advance as tolerated.
Will follow for now
Original Note:
Consultation
-
Date/Time Consultation Requested: 11/16/242052
Date/Time Consultation Performed: 11/17/24 1200
Requesting Provider: POONAM Rodriguez
Performing Provider: Dr. Powers/POONAM Lamas
Reason for Consultation: anemia, OB pos stool
Medical History
Chief Complaint / HPI
Chief Complaint: Anemia, OB positive stool
History of Present Illness:
84-year-old female with past medical history of diabetes, TIA, hypertension, transient global amnesia, anemia, osteoarthritis who had recent hospitalization for left fractured hip with repair and admitted 10/20/2024 through 10/26/2024 discharged on
aspirin for blood clot prevention discharged to rehab however developed a DVT in her left leg postsurgery. Apparently was started on Eliquis during that time (information around this unavailable to us will reach out to son for further information)
sent to the emergency room for outpatient labs with worsening anemia. Patient was found to have brown OB positive stool. We are asked to evaluate for the same. The patient appears to have a baseline hemoglobin of around the 11 range that is
longstanding. Outpatient labs show this went down to approximately 10 in August. She did get admitted to the hospital with left hip ORIF with hemoglobin dropping down to 7.1. She was discharged with a hemoglobin of 9.0 on 10/25/2024. She does tell
us that she had significant ecchymosis of the left hip that ran down her thigh. Repeat hemoglobin on 10/29 and 11/04/2024 showed hemoglobin both 8.2 on those days. Apparently sometime after that she was diagnosed with a left lower extremity DVT and
was placed on Eliquis. Currently she comes into the emergency room with a hemoglobin of 6.6. She was transfused 2 units of packed red blood cells with hemoglobin going up to 9.1. She has brown/green OB positive stool. She does state that on
occasion she would see some red blood in the bowl. She does state that this would be rare. She would usually have 1 soft formed daily bowel movement that was complete. From review of her PCP records dating back to 2012 it appears that she had her
last colonoscopy 01/20/2009. Her recommended repeat was in 10 years. She declined colonoscopy at that time. She denies any fevers, chills, nausea, vomiting, melena, dysphagia or dyne aphasia. No early satiety or unintended weight loss. She
denies any abdominal pain. She does have some joint pains. She is a non-smoker, nondrinker. No family history of GI malignancy. She is on oral iron.
Past Medical History
Past Medical History: Other (Diabetes, TIA, hypertension, transient global amnesia, anemia, osteoarthritis)
Past Surgical History: Other (Hysterectomy, BSO, lumbar laminectomy, breast biopsy, steroid injections, cholecystectomy, bilateral carpal tunnel release, left hip ORIF with nail placement)
Social History
Tobacco: Non-Smoker
Alcohol: None
Drug: None
Personal:
Living: [facility]
Family History
Family History: Other (No family history gastrointestinal malignancy)
Allergies / Home Medications
Allergy/AdvReac Type Severity Reaction Status Date / Time
soy (Soy) Allergy Diarrhea, Verified 03/03/24 12:38
nausea
Sulfa (Sulfonamide Allergy Unknown Verified 03/03/24 12:38
Antibiotics)
(Sulfa(Sulfonamide
Antibiotics))
�Medication �Instructions �Recorded
skduveff-urgg-iodj 8 mg-folic 400 1 tab PO DAILY Supplement 10/20/24
mcg-K 50 mcg-lutein 300 mcg tablet
(Centrum Silver Women)
calcium carbonate 500 mg PO DAILY 30 days #30 tabs 10/26/24
docusate sodium 100 mg capsule 100 mg PO BID 10 days #20 caps 10/26/24
oxycodone 5 mg tablet 5 mg PO Q4HPRN PRN mild pain #10 10/26/24
tabs
pantoprazole 20 mg tablet,delayed 20 mg PO DAILY 30 days #30 tabs 10/26/24
release
acetaminophen 325 mg tablet 650 mg PO Q6HPRN PRN mild 11/16/24
pain/fever >100.4F
apixaban 5 mg tablet 5 mg PO BID Blood Clot 11/16/24
Prevention/Tx
bisacodyl 10 mg rectal suppository 10 mg MT DAILY PRN no BM x3 days 11/16/24
(Dulcolax (bisacodyl))
ferrous sulfate 325 mg (65 mg 325 mg PO DAILY Supplement 11/16/24
iron) tablet
lidocaine 4 % topical patch 3 patch topical QPM lower back 11/16/24
sennosides 8.6 mg tablet (Lucy-leslie) 17.2 mg PO HS Constipation 11/16/24
metformin 500 mg tablet 500 mg PO DAILY Diabetes 11/17/24
Review of Systems
-
All other systems: A 12 pt ROS was Negative except as stated above in HPI
Vital Signs
Temp Pulse Resp BP Pulse Ox
97.7 F 72 18 150/74 98
11/17/24 12:17 11/17/24 12:17 11/17/24 12:17 11/17/24 12:17 11/17/24 12:17
Physical Exam
Exam
General: No Apparent Distress
HEENT: Anicteric
Respiratory: Clear
Cardiac: Regular Rhythm and Murmur
GI: Soft, Non Tender, Non Distended and Normal Bowel Sounds
Rectal: Hem Positive (Brown/green stool (OB positive))
Skin: Warm, Dry and Other (Old area healed ecchymosis (left anterior thigh))
Neuro: AO x 3
Psych: Calm
Results
WBC 5.3 10^3/uL (4.8-10.8) 11/17/24 07:38
Hgb Cancelled 11/17/24 08:53
Hct Cancelled 11/17/24 08:53
MCV 93.0 fL (81.0-99.0) 11/17/24 07:38
Plt Count 390 10^3/uL (130-400) 11/17/24 07:38
Sodium 134 mmol/L (135-145) L 11/17/24 07:38
Potassium 4.4 mmol/L (3.5-5.1) 11/17/24 07:38
Chloride 104 mmol/L (98-107) 11/17/24 07:38
Carbon Dioxide 24 mmol/L (22-30) 11/17/24 07:38
BUN 7 mg/dl (7-17) 11/17/24 07:38
Creatinine 0.6 mg/dL (0.6-1.0) 11/17/24 07:38
Calcium 9.1 mg/dl (8.4-10.2) 11/17/24 07:38
Diagnostic Image Results:
Bilateral lower extremity ultrasound 11/16/2024:
IMPRESSION: No evidence of deep venous thrombosis bilaterally.
Prior GI Procedures:
EGD: None
Colonoscopy: 01/20/2009 (per PCP records). Repeat due 01/20/2019. patient opted out of repeat colonoscopy.
Assessment / Plan
-
84-year-old female with past medical history of diabetes, TIA, hypertension, transient global amnesia, anemia, osteoarthritis who had recent hospitalization for left fractured hip with repair and admitted 10/20/2024 through 10/26/2024 discharged on
aspirin for blood clot prevention discharged to rehab however developed a DVT in her left leg postsurgery. Apparently was started on Eliquis during that time (information around this unavailable to us will reach out to son for further information)
sent to the emergency room for outpatient labs with worsening anemia. Patient was found to have brown OB positive stool. We are asked to evaluate for the same.She was discharged with a hemoglobin of 9.0 on 10/25/2024. She does tell us that she had
significant ecchymosis of the left hip that ran down her thigh. Repeat hemoglobin on 10/29 and 11/04/2024 showed hemoglobin both 8.2 on those days. Apparently sometime after that she was diagnosed with a left lower extremity DVT and was placed on
Eliquis. Currently she comes into the emergency room with a hemoglobin of 6.6. She was transfused 2 units of packed red blood cells with hemoglobin going up to 9.1. She has brown/green OB positive stool. The patient's last colonoscopy was in
2008. Her return for repeat colonoscopy was recommended in 2019 per PCP records. After long discussion with patient and offered endoscopy and colonoscopy. Patient is declining.
Impression:
OB positive stool
Anemia, chronic with baseline hemoglobin around 11. Worsened anemia post ORIF, likely exacerbated with addition of Eliquis and aspirin.
Provoked left lower extremity DVT, repeat ultrasound is negative bilateral lower extremities
Status post left hip ORIF
Plan:
- Continue pantoprazole 40 mg daily
-Patient does not wish to have endoscopy and colonoscopy, expressed her wishes.
-Transfused up appropriately, no signs of active bleeding
- Would recommend p.o. or IV iron.
-Start clear liquid, advance diet as tolerated.
-Continue bowel regimen.
-
-
Thank you for consultation and allowing me to participate in the patient's care. Please call the head of digital advertising & integration GI physician during the after hours with any questions or concerns.
--- NOTE | 2024-11-17 12:48 | W.PN.HOSP.TC ---
Today's Communication/Plan
-
Hold Eliquis
Trend CBC
N.p.o. pending GI
Orthopedics consult
Supportive transfusions as needed
Assessment / Plan
Assessment / Plan
#Acute blood loss anemia
#Lower GI bleed
-Differentials include diverticular bleed, hemorrhoid, AVM, malignancy; exacerbated by Eliquis use
-Hemoglobin on arrival 6.6, received 2 unit PRBC, repeat hemoglobin 9.1; low suspicion for UGIB
-Patient states as of this morning has not had any recurrence, denies history of previous bleed
-States she has not had a colonoscopy in many years, denies known history of diverticuli
-Holding home Eliquis, will continue to trend CBC
-Transfuse PRBC for Hb <7 or symptoms of anemia
-GI consulted for consideration of endoscopy here
#Hyponatremia
-Differentials include poor intake, mild SIADH
-Volume status likely euvolemic to slightly hypovolemic
-Mild, sodium consistently in range 130-135
-Continue to monitor BMP,
#Recent left hip fracture s/p cephalomedullary nail
-Consulted orthopedics, scheduled for OV tomorrow morning to follow-up
-Continue with Tylenol and other as needed analgesics
#NIDDM
-A1c 6.7%, no known microvascular complications
-Home regimen includes metformin 500 mg daily
-Transition to ISS with Accu-Cheks here
#Recent postoperative DVT of lower extremity
-Was on aspirin following hip procedure, developed DVT and was transitioned to Eliquis
-Eliquis currently held as above for lower GI bleed
-Venous ultrasound here without signs of thrombi
#H/O CVA
-Unclear etiology, no known history of AF/AFL, cerebrovascular disease, carotid stenosis or HTN
-Current medications include Eliquis; for recent DVT not on aspirin or statin
-No obvious residual deficits
Diet: NPO pending GI eval
DVT prophylaxis: SCDs
CODE STATUS: DNR
Disposition: Back to [facility] when medically stable
Anticipated Discharge: 24 - 48 hours
Subjective/Interval History
-
Date of Service: November 17, 2024
Seen and examined at the bedside. No acute events reported overnight. AFVSS this morning
Hemoglobin up to 9.1 following 2 unit PRBC. Denies any further episodes of blood in her stool
Denies any complaints today including chest pain, dyspnea, abdomen pain, N/V, fevers or chills
Objective Data
-
Labs:
Laboratory Results
11/17/24 11/17/24
07:38 14:00
WBC 5.3 Pending
Hgb 9.1 L D Pending
Hct 26.7 L Pending
Plt Count 390 Pending
Sodium 134 L
Potassium 4.4
Chloride 104
Carbon Dioxide 24
BUN 7
Creatinine 0.6
Glucose 123 H
Calcium 9.1
Vital Signs:
Vital Signs
Temp Pulse Resp BP Pulse Ox
97.7 F 72 18 150/74 98
11/17/24 12:17 11/17/24 12:17 11/17/24 12:17 11/17/24 12:17 11/17/24 12:17
I&O
11/16/24 11/17/24 11/18/24
06:59 06:59 06:59
Intake Total 1000 / 1000 240 / 240
Balance 1000 / 1000 240 / 240
Review of Systems
-
History Source: Patient
All other systems: Reviewed and negative
Physical Exam
-
General: Well Developed, No Apparent Distress, Comfortable and Obese
HEENT: Normocephalic, Atraumatic, Moist Mucous Membranes and Anicteric
Respiratory: Clear to Auscultation and Non Labored Respirations; Negative Accessory Resp Muscle Use
Cardiac: Regular Rhythm and S1/S2; Negative Murmur, Rub or JVD
GI: Soft, Nontender, Nondistended and Normal Bowel Sounds
Musculoskeletal: No Clubbing, No Cyanosis and No Edema
Skin: Warm and Dry; Negative Rash
Neuro: AO x 3 and Nonfocal/Grossly Intact; Negative Central Nerve's Intact
Psych: Calm
Data Reviewed
-
Labs: Labs Reviewed by me and Discussed with Patient
[2024-11-17 13:53] LABS: Hematocrit 28.8 % (37.0-47.0); Hemoglobin 9.8 g/dL (12.0-16.0); Mean Corp Hgb Conc. 34.0 g/dL (33.0-37.0); Mean Corpuscular Volume 93.2 fL (81.0-99.0); Platelet Count 442 10^3/uL (130-400); Red Cell Dist. Width 18.5 % (11.5-14.5)
[2024-11-17 16:53] LABS: Glucose - Point of Care 109 mg/dl (70-99)
[2024-11-17] MEDS: LIDOCAINE 4% PATCH 3 PATCH TOPICAL (19:58)
[2024-11-17 21:50] LABS: Glucose - Point of Care 172 mg/dl (70-99)
[2024-11-18] VITALS (7 sets, daily range): BP systolic 125–161; BP diastolic 69–79; PULSE 81; O2SAT 98
[2024-11-18] MEDS: NSS 1000 IV (01:02)
--- NOTE | 2024-11-18 07:13 | W.PN.UPDATE ---
Update Note
Progress Note Update
Status post left hip gamma nail October 21, [address] Mane. Postoperatively she seems to doing well but was readmitted for GI bleed. She reports that her left hip is doing well and she was doing physical therapy. Patient is afebrile and vital
signs stable. Incisions are clean, dry and intact. Top incision has a few Steri-Strips left in place. No edema, ecchymosis, erythema or pain to palpation throughout the left hip and left femur. Hip range of motion reveals flexion 90 degrees,
internal rotation 10 degrees, external rotation 25 degrees all without pain. Calf is soft and nontender. Distal neurovascular was intact. Patient should continue with formal physical therapy, x-rays left femur today to assess healing and
follow-up with orthopedics 6 weeks to check her progress. Ultrasound bilateral lower extremities negative for DVT.
[2024-11-18 07:16] LABS: Glucose - Point of Care 131 mg/dl (70-99)
[2024-11-18 07:33] LABS: Hematocrit 26.5 % (37.0-47.0); Hemoglobin 9.0 g/dL (12.0-16.0); Mean Corp Hgb Conc. 34.0 g/dL (33.0-37.0); Mean Corpuscular Volume 93.6 fL (81.0-99.0); Nucleated Red Blood Cells % 0 %; Platelet Count 414 10^3/uL (130-400); Red Cell Dist. Width 18.0 % (11.5-14.5)
[2024-11-18 08:14] LABS: Blood Urea Nitrogen 5 mg/dl (7-17); Calcium 8.8 mg/dl (8.4-10.2); Carbon Dioxide 24 mmol/L (22-30); Chloride 104 mmol/L (98-107); Estimated Creatinine Clearance 68 ml/min; Glucose 119 mg/dl (70-99); Potassium 4.2 mmol/L (3.5-5.1); Sodium 133 mmol/L (135-145); eGFR > 60.00
[2024-11-18] MEDS: FEOSOL 325 MG PO (08:27)
[2024-11-18] MEDS: THERAGRAN 1 TABLET PO (08:27)
[2024-11-18] MEDS: OSCAL CAL 500 500 MG PO (08:27)
[2024-11-18] MEDS: REMOVE LIDOCAINE PATCH 3 PATCH REMOVE (08:28)
[2024-11-18] MEDS: NSS (PRESERVATIVE FREE) 10 ML IV (08:28)
[2024-11-18] MEDS: PROTONIX IV 40 MG IV (08:28)
--- NOTE | 2024-11-18 11:08 | CM ---
Met patient at bedside and chart reviewed. PT rec SNF. Needs auth to return to [place]. Possible D/C 11/19. Monitoring bloodwork related to Eiquis. Pt states she has an ortho appt today.
Plan: Return to [facility].
--- NOTE | 2024-11-18 11:28 | W.PN.HOSP.TC ---
Today's Communication/Plan
-
Repeat H/H at noon
Resume Eliquis this evening if CBC stable
Full diet
Assessment / Plan
Assessment / Plan
#Acute blood loss anemia
#Lower GI bleeding
-Differentials include diverticular bleed, hemorrhoid, AVM, malignancy; exacerbated by Eliquis use
-Hemoglobin on arrival 6.6, received 2 unit PRBC, repeat hemoglobin 9.1; low suspicion for UGIB
-Patient states as of this morning has not had any recurrence, denies history of previous bleed
-States she has not had a colonoscopy in many years, denies known history of diverticuli
-As of this morning, 11/18, patient refusing endoscopy here
-Will repeat H/H at noon, resume Eliquis this evening if stable
-Continue to trend CBC, Transfuse PRBC for Hb <7 or symptoms of anemia
-GI appreciated; will ensure she has OP follow-up with GI
#Chronic Hyponatremia
-Differentials include poor intake, mild SIADH
-Volume status likely euvolemic to slightly hypovolemic
-Mild, sodium consistently in range 130-135
-Continue to monitor BMP
#Recent left hip fracture s/p cephalomedullary nail
-Consulted orthopedics, ordered follow-up x-ray and reassessed at bedside today
-Continue with Tylenol and other as needed analgesics
#NIDDM
-A1c 6.7%, no known microvascular complications
-Home regimen includes metformin 500 mg daily
-Transition to ISS with Accu-Cheks here
#Recent postoperative DVT of lower extremity
-Was on aspirin following hip procedure, developed DVT and was transitioned to Eliquis
-Eliquis currently held as above for lower GI bleed
-Venous ultrasound here without signs of thrombi
#H/O CVA
-Unclear etiology, no known history of AF/AFL, cerebrovascular disease, carotid stenosis or HTN
-Current medications include Eliquis; for recent DVT not on aspirin or statin
-No obvious residual deficits
Diet: Carbohydrate controlled
DVT prophylaxis: SCDs, likely resume DOAC this evening
CODE STATUS: DNR
Disposition: Back to [facility] when medically stable
Anticipated Discharge: Within 24 hours
Subjective/Interval History
-
Date of Service: November 18, 2024
Seen and examined at the bedside. No acute events reported overnight. AFVSS this morning
Hgb up to 9.8 following 2 units PRBC, repeat this morning 9.0. H/H ordered for noon today
Patient denies any new complaints this morning. Denies bloody stool
Objective Data
-
Labs:
Laboratory Results
11/18/24 11/18/24
07:21 12:00
WBC 5.3
Hgb 9.0 L Pending
Hct 26.5 L Pending
Plt Count 414 H
Sodium 133 L
Potassium 4.2
Chloride 104
Carbon Dioxide 24
BUN 5 L
Creatinine 0.6
Glucose 119 H
Calcium 8.8
Vital Signs:
Vital Signs
Temp Pulse Resp BP Pulse Ox
97.9 F 82 14 149/79 97
11/18/24 07:20 11/18/24 07:20 11/18/24 07:20 11/18/24 07:20 11/18/24 07:20
I&O
11/17/24 11/18/24 11/19/24
06:59 06:59 06:59
Intake Total 1000 / 1000 240 / 240
Balance 1000 / 1000 240 / 240
Review of Systems
-
History Source: Patient
All other systems: Reviewed and negative
Physical Exam
-
General: Well Developed, No Apparent Distress, Comfortable and Obese
HEENT: Normocephalic, Atraumatic, Moist Mucous Membranes and Anicteric
Respiratory: Clear to Auscultation and Non Labored Respirations; Negative Accessory Resp Muscle Use
Cardiac: Regular Rhythm and S1/S2; Negative Murmur, Rub or Gallop
GI: Soft, Nontender, Nondistended and Normal Bowel Sounds
Musculoskeletal: No Clubbing, No Cyanosis and No Edema
Skin: Warm, Dry and Normal Turgor; Negative Rash
Neuro: AO x 3 and Nonfocal/Grossly Intact
Psych: Calm
Data Reviewed
-
Labs: Labs Reviewed by me, Discussed with Physician (GI) and Discussed with Patient
[2024-11-18 12:02] LABS: Glucose - Point of Care 153 mg/dl (70-99)
[2024-11-18 12:02] LABS: Hematocrit 26.7 % (37.0-47.0); Hemoglobin 9.1 g/dL (12.0-16.0)
--- NOTE | 2024-11-18 14:18 | W.PN.GI.CBS2 ---
Today's Communication / Plan
-
Plan:
- Anemia with normal iron indices but clearly heme positive and previous history of anemia
Rule out ulcer disease, angiectasia's, colon polyps, cannot rule out colon cancer versus other
Patient's last colonoscopy was in 2008 PCPs records, not available to review and patient has been declining colonoscopies as per PCP charting.
I reviewed in detail with the patient and son again today regarding her anemia and possible etiologies, evaluation including upper endoscopy and colonoscopy but patient wants to hold off as she is not interested in pursuing any endoscopy evaluation.
I did reinforce to patient that this will be a recurrent issue anemia and low blood counts needing hospital visits. Patient understands and still declines procedures.
Hemoglobin seems to be stable.
Continue pantoprazole 40 mg twice a day for now, monitor H&H and transfuse if needed. Monitor bowel movements.
Patient reports some abdominal discomfort on PPIs in the past when she tried and says she will try to wean it off if not needed. I explained to patient and son clearly that if she has acid reflux symptoms, it might be better to stay on the PPI.
No further GI evaluation at this time, will sign off and please call back if needed.
Assessment / Plan
-
84-year-old female with past medical history of diabetes, TIA, hypertension, transient global amnesia, anemia, osteoarthritis who had recent hospitalization for left fractured hip with repair and admitted 10/20/2024 through 10/26/2024 discharged on
aspirin for blood clot prevention discharged to rehab however developed a DVT in her left leg postsurgery. Apparently was started on Eliquis during that time (information around this unavailable to us will reach out to son for further information)
sent to the emergency room for outpatient labs with worsening anemia. Patient was found to have brown OB positive stool. We are asked to evaluate for the same.She was discharged with a hemoglobin of 9.0 on 10/25/2024. She does tell us that she had
significant ecchymosis of the left hip that ran down her thigh. Repeat hemoglobin on 10/29 and 11/04/2024 showed hemoglobin both 8.2 on those days. Apparently sometime after that she was diagnosed with a left lower extremity DVT and was placed on
Eliquis. Currently she comes into the emergency room with a hemoglobin of 6.6. She was transfused 2 units of packed red blood cells with hemoglobin going up to 9.1. She has brown/green OB positive stool. The patient's last colonoscopy was in
2008. Her return for repeat colonoscopy was recommended in 2019 per PCP records. After long discussion with patient and offered endoscopy and colonoscopy. Patient is declining.
Impression:
OB positive stool
Anemia, chronic with baseline hemoglobin around 11. Worsened anemia post ORIF, likely exacerbated with addition of Eliquis and aspirin.
Provoked left lower extremity DVT, repeat ultrasound is negative bilateral lower extremities
Status post left hip ORIF
Plan:
- Anemia with normal iron indices but clearly heme positive and previous history of anemia
Rule out ulcer disease, angiectasia's, colon polyps, cannot rule out colon cancer versus other
Patient's last colonoscopy was in 2008 PCPs records, not available to review and patient has been declining colonoscopies as per PCP charting.
I reviewed in detail with the patient and son again today regarding her anemia and possible etiologies, evaluation including upper endoscopy and colonoscopy but patient wants to hold off as she is not interested in pursuing any endoscopy evaluation.
I did reinforce to patient that this will be a recurrent issue anemia and low blood counts needing hospital visits. Patient understands and still declines procedures.
Hemoglobin seems to be stable.
Continue pantoprazole 40 mg twice a day for now, monitor H&H and transfuse if needed. Monitor bowel movements.
Patient reports some abdominal discomfort on PPIs in the past when she tried and says she will try to wean it off if not needed. I explained to patient and son clearly that if she has acid reflux symptoms, it might be better to stay on the PPI.
No further GI evaluation at this time, will sign off and please call back if needed.
Subjective
Subjective
Date of Service: November 18, 2024
Patient without any abdominal pain, nausea or vomiting. No bowel movements today. Tolerating ADA diet
Objective
Data Reviewed
Laboratory Data:
Laboratory Results
11/18/24 11:55
11/18/24 07:21
Vital Signs and I&O:
Vital Signs
Temp Pulse Resp BP Pulse Ox
97.4 F 71 14 125/70 100
11/18/24 11:15 11/18/24 11:15 11/18/24 11:15 11/18/24 11:15 11/18/24 11:15
I&O
11/17/24 11/18/24 11/19/24
06:59 06:59 06:59
Intake Total 1000 / 1000 240 / 240
Balance 1000 / 1000 240 / 240
Physical Exam
Physical Exam
GI: Soft, Non Distended and Non Tender
[2024-11-18 16:42] LABS: Glucose - Point of Care 162 mg/dl (70-99)
--- NOTE | 2024-11-18 17:14 | W.PN.UPDATE ---
Update Note
Progress Note Update
I spoke with Last, the patient's son, on the phone and provided updates. Discussed continuing DOAC and Last has reservations about resuming medication due to the patients history of GI bleeding, including the episode that led to admission here.
Patient currently on eliquis for DVT that occurred while on ASA, status-post orthopedic procedure on 10/21. BLLE US here was negative for current DVTs.
Will hold off on eliquis for tonight. Being close to 4 weeks post-OR, may be ok to DC anticoagulant. Will discuss with orthopedics
[2024-11-18] MEDS: NSS IV (18:12)
[2024-11-18] MEDS: LIDOCAINE 4% PATCH TOPICAL (20:36)
[2024-11-18] MEDS: PROTONIX IV IV (20:37)
[2024-11-18] MEDS: NSS (PRESERVATIVE FREE) IV (20:37)
[2024-11-18 21:47] LABS: Glucose - Point of Care 126 mg/dl (70-99)
[2024-11-19 03:00] VITALS: BP 168/92
[2024-11-19 08:00] VITALS: BP 165/87
[2024-11-19] MEDS: NSS (PRESERVATIVE FREE) IV (08:04)
[2024-11-19] MEDS: REMOVE LIDOCAINE PATCH REMOVE (08:04)
[2024-11-19] MEDS: PROTONIX IV IV (08:04)
[2024-11-19] MEDS: OSCAL CAL 500 500 MG PO (08:05)
[2024-11-19] MEDS: THERAGRAN 1 TABLET PO (08:05)
[2024-11-19] MEDS: FEOSOL 325 MG PO (08:05)
--- NOTE | 2024-11-19 08:05 | W.PN.UPDATE ---
Update Note
Progress Note Update
Patient seen and examined this morning. She reports she is doing well from a hip fracture perspective and ambulating with minimal discomfort with physical therapy and a walker. Incision site areas are clean and dry. X-rays taken show some
interval impaction however with surrounding callus formation and no gross instability of the fracture site. Recommend continue weightbearing as tolerated with assist devices with x-rays at 4 weeks from date of surgery in the office outpatient
[2024-11-19 08:11] LABS: Glucose - Point of Care 141 mg/dl (70-99)
[2024-11-19 09:39] LABS: Hematocrit 28.1 % (37.0-47.0); Hemoglobin 9.6 g/dL (12.0-16.0); Mean Corp Hgb Conc. 34.2 g/dL (33.0-37.0); Mean Corpuscular Volume 93.7 fL (81.0-99.0); Nucleated Red Blood Cells % 0 %; Platelet Count 454 10^3/uL (130-400); Red Cell Dist. Width 17.3 % (11.5-14.5)
--- NOTE | 2024-11-19 10:06 | CM ---
Addendum entered by Sarah Maharaj 11/19/24 16:23:
[facility]
Report:[phone]

Pt approved for 11/19/24 to 11/25/24, 7 days. NRD 11/25/24. followup with
Addendum entered by Sarah Maharaj 11/19/24 16:12:
SNF authorization approved. Pt and son made aware. Transport will be by ambulance at 7. IMM given and form placed in chart.
Addendum entered by Sarah Maharaj 11/19/24 15:19:
SNF authorization started for [place]. Pending reference # [id number]. CM will arrange ambulance transport if SNF is approved. Pt aware. Authorization # for [facility] #[id number];
Original Note:
Met with patient at bedside. Would like to be d/c before noon. Dr. Alvarado made aware. Spoke with son about Wheelchair van transportation; he accepted this.
Plan: return to [facility].
--- NOTE | 2024-11-19 10:55 | W.PN.HOSP.TC ---
Today's Communication/Plan
-
Discontinue Eliquis
Discharge back to SNF
OP follow-up with PCP and orthopedics
Assessment / Plan
Assessment / Plan
#Acute blood loss anemia
#Lower GI bleeding
-Differentials include diverticular bleed, hemorrhoid, AVM, malignancy; exacerbated by Eliquis use
-Hemoglobin on arrival 6.6, received 2 unit PRBC, repeat hemoglobin 9.1; low suspicion for UGIB
-Patient states as of this morning has not had any recurrence, denies history of previous bleed
-States she has not had a colonoscopy in many years, denies known history of diverticuli
-As of this morning, 11/18, patient refusing endoscopy here; orthopedics okay with stopping AC
-Continue to trend CBC, Transfuse PRBC for Hb <7 or symptoms of anemia
-Discontinue Eliquis, OP CBC in 5 to 7 days
#Chronic Hyponatremia
-Differentials include poor intake, mild SIADH
-Volume status likely euvolemic to slightly hypovolemic
-Mild, sodium consistently in range 130-135
-Continue to monitor BMP
#Recent left hip fracture s/p cephalomedullary nail
-Consulted orthopedics, ordered follow-up x-ray and reassessed at bedside today
-Continue with Tylenol and other as needed analgesics
-OP follow-up with orthopedist
#NIDDM
-A1c 6.7%, no known microvascular complications
-Home regimen includes metformin 500 mg daily
-Transition to ISS with Accu-Cheks here
#Recent postoperative DVT of lower extremity
-Was on aspirin following hip procedure, developed DVT and was transitioned to Eliquis
-Eliquis currently held as above for lower GI bleed; Venous ultrasound here without signs of thrombi
-Discussed with orthopedics, no indication for ongoing anticoagulants
#H/O CVA
-Unclear etiology, no known history of AF/AFL, cerebrovascular disease, carotid stenosis or HTN
-Current medications include Eliquis; for recent DVT not on aspirin or statin
-No obvious residual deficits
Diet: Carbohydrate controlled
DVT prophylaxis: SCDs
CODE STATUS: DNR
Disposition: Back to [facility]
Anticipated Discharge: Today
Subjective/Interval History
-
Date of Service: November 19, 2024
Seen and examined at the bedside. No acute events reported overnight. AFVSS this morning
Hemoglobin improving. Discussed with orthopedics and will hold off on Eliquis at discharge
Patient denies any new complaints, excited to go back to [facility] today
Objective Data
-
Labs:
Laboratory Results
11/19/24
09:05
WBC 5.9
Hgb 9.6 L
Hct 28.1 L
Plt Count 454 H
Vital Signs:
Vital Signs
Temp Pulse Resp BP Pulse Ox
98.4 F 86 20 165/87 98
11/19/24 08:00 11/19/24 08:00 11/19/24 08:00 11/19/24 08:00 11/19/24 08:00
I&O
11/18/24 11/19/24 11/20/24
06:59 06:59 06:59
Intake Total 240 / 240
Balance 240 / 240
Review of Systems
-
History Source: Patient
All other systems: Reviewed and negative
Physical Exam
-
General: Well Developed, No Apparent Distress and Comfortable
HEENT: Normocephalic, Atraumatic, Moist Mucous Membranes and Anicteric
Respiratory: Clear to Auscultation and Non Labored Respirations; Negative Accessory Resp Muscle Use
Cardiac: Regular Rhythm and S1/S2; Negative Murmur, Rub or Gallop
GI: Soft, Nontender, Nondistended and Normal Bowel Sounds
Musculoskeletal: No Clubbing, No Cyanosis and No Edema
Skin: Warm and Dry; Negative Rash
Neuro: AO x 3, Nonfocal/Grossly Intact and Central Nerve's Intact; Negative Tremors
Psych: Calm
Data Reviewed
-
Labs: Labs Reviewed by me, Discussed with Physician (Ortho), Discussed with Patient and Discussed with Family
[2024-11-19 11:16] VITALS: BP 126/73
[2024-11-19 11:44] LABS: Glucose - Point of Care 136 mg/dl (70-99)
--- NOTE | 2024-11-19 12:56 | W.DCSUMMARY ---
Discharge Summary
Discharge Data
Date of Admission: 11/16/24
Date of Discharge: 11/19/24
Total time spent discharging patient (in min): 32
-
Pending Results: No
Hospital Course
Discharging Physician : Randy Alvarado DO
Disposition : [facility]
Principal Discharge diagnosis :
Acute blood loss anemia due to GIB
Status post 2 unit PRBC
Chronic Discharge diagnosis :
NIDDM
Spinal stenosis
S/p left cephalomedullary nail
Recent DVT on Eliquis
History of CVA
Hospital Course :
84-year-old female that presented to the hospital for rectal bleeding that occurred while on aspirin for recent DVT. Patient 4 weeks status post left cephalomedullary nail and was taking Eliquis for DVT prophylaxis postoperatively. Initial
hemoglobin 6.6, received 2 units of packed red blood cells with improvement of hemoglobin up to 9. Home Eliquis was held, CBC was trended and remained stable with hemoglobin 9.6 at time of discharge. Gastroenterology was consulted and recommended
EGD and colonoscopy however patient did not want to have test performed. Discussed ongoing anticoagulation with her orthopedist, with timeframe now being 4 weeks postoperative, DVT US in the hospital being negative, no indication to continue with
AC especially in the context of her bleeding events. Eliquis was discontinued, hemoglobin remained stable throughout hospital stay After initial blood transfusion. She was evaluated in the hospital by orthopedics as she had outpatient visit
scheduled for 11/18/2024. After discharge did have CBC done 5 to 7 days after discharge. Recommend patient take pantoprazole 40 mg twice daily for 4 weeks then de-escalate to once daily thereafter. Follow-up in office with PCP and orthopedist
Consultants:
Hannah Powers MD -- Gastroenterology
Important imaging findings :
Peripheral venous US, bilateral LE (11/16/2024)
FINDINGS: There is no evidence for deep venous thrombosis bilaterally. There is normal compressibility, color flow, and spectral Doppler flow of the deep venous system bilaterally from the common femoral vein through the posterior tibial vein. The
proximal right greater saphenous vein is patent. Prior left-sided venous ablation.
Procedure findings : N/A
Follow-up :
-Repeat CBC in 5 to 7 days while at SNF
-Follow-up with PCP within 1 week
-Follow-up with orthopedics within 2 weeks
Discharge Plan
-
Patient Disposition: [facility]
Discharge Diagnosis/Procedures: GI bleeding
Acute blood loss anemia s/p 2 unit PRBC
Recent DVT on Eliquis
Condition: Fair
Diet: Diabetic, Carb Controlled
Activity: As tolerated
Driving Restrictions: Not until seen by your Dr
Bathing Restrictions: None
Blood Work: Repeat CBC and BMP 5 to 7 days after discharge from hospital
Other Services: PT and OT
Activity Restrictions/Additional Instructions:
Follow-up with your family doctor after discharge from the hospital, should be seen in office within 1 week
Contact orthopedist to schedule follow-up appointment
Referrals:
Yandel Estrella MD [Family Provider, Family Practice]
Placido Prado MD [Active, Orthopedics]
Additional Discharge Medication Instructions: Continue pantoprazole 40 mg twice daily for 4 weeks then de-escalate to 40 mg once daily
Stop taking Eliquis
Prescriptions:
New
pantoprazole 40 mg tablet,delayed release (DR/EC)
40 mg PO BID Qty: 60 0RF
Continued
Centrum Silver Women 8 mg iron-400 mcg-50 mcg Tablet
1 tab PO DAILY
docusate sodium 100 mg Capsule
100 mg PO BID 10 Days Qty: 20 0RF
calcium carbonate 500 mg calcium (1,250 mg) Tablet
500 mg PO DAILY 30 Days Qty: 30 0RF
oxycodone 5 mg Tablet
5 mg PO Q4HPRN PRN (Reason: mild pain) Qty: 10 0RF
bisacodyl [Dulcolax (bisacodyl)] 10 mg Suppository
10 mg MT DAILY PRN (Reason: no BM x3 days)
ferrous sulfate 325 mg (65 mg iron) Tablet
325 mg PO DAILY
sennosides [Lucy-leslie] 8.6 mg tablet
17.2 mg PO HS
acetaminophen 325 mg tablet
650 mg PO Q6HPRN PRN (Reason: mild pain/fever >100.4F)
lidocaine 4 % adhesive patch,medicated
3 patch topical QPM
metformin 500 mg tablet
500 mg PO DAILY
Discontinued
pantoprazole 20 mg Tablet,Delayed Release (Dr/Ec)
20 mg PO DAILY 30 Days Qty: 30 0RF
apixaban 5 mg Tablet
5 mg PO BID
Discharge Orders:
Discharge Patient (As Directed); Ordered 11/19/24
Ordered By: Randy Alvarado
Discharge Date and Time
Print Language: SAMI
[2024-11-19 15:55] VITALS: BP 136/79
[2024-11-19 16:46] LABS: Glucose - Point of Care 156 mg/dl (70-99)
== END 2024-11-19 19:12 | DRG 378 ==
LOC: 4 WEST ACU 19:30
PROVIDERS: Nurse Practitioner Family; ADMITTING PHYSICIAN Hospitalist; ATTENDING PHYSICIAN Internal Medicine; CONSULT PHYSICIAN Internal Medicine Gastroenterology; EMERGENCY PHYSICIAN Emergency Medicine; FAMILY PHYSICIAN Family Medicine
PROC: 30233N1 Transfusion of Nonautologous Red Blood Cells into Peripheral Vein, Percutaneous Approach (ICD-10-PCS; 2024-11-16)
DX: K92.1 Melena (principal); D62 Acute posthemorrhagic anemia; E87.1 Hypo-osmolality and hyponatremia; D68.32 Hemorrhagic disorder due to extrinsic circulating anticoagulants; T45.515A Adverse effect of anticoagulants, initial encounter; E11.9 Type 2 diabetes mellitus without complications; Z66 Do not resuscitate; I10 Essential (primary) hypertension; Z79.01 Long term (current) use of anticoagulants; Z79.84 Long term (current) use of oral hypoglycemic drugs; Z79.899 Other long term (current) drug therapy; Z86.718 Personal history of other venous thrombosis and embolism; Z86.73 Personal history of transient ischemic attack (TIA), and cerebral infarction without residual deficits
CPT/HCPCS: 73502; 73552; 80048; 82962; 85014; 85018; 85025; 85027; 86850; 86900; 86901; 86920; 87070; 93970; 97116; 97163; 97167; 97530; 99291; P9016

== ENCOUNTER → 2024-11-23 10:28 | Outpatient (REF) | payer OTHER, SELFPAY ==
[2024-11-23 10:52] LABS: Hematocrit 26.6 % (37.0-47.0); Hemoglobin 8.9 g/dL (12.0-16.0); Mean Corp Hgb Conc. 33.5 g/dL (33.0-37.0); Mean Corpuscular Volume 96.0 fL (81.0-99.0); Platelet Count 375 10^3/uL (130-400); Red Cell Dist. Width 17.0 % (11.5-14.5)
[2024-11-23 11:37] LABS: ALT (SGPT) 16 U/L (0-35); AST (SGOT) 24 U/L (14-36); Albumin 3.5 g/dl (3.5-5.0); Alkaline Phosphatase 190 U/L (38-126); Blood Urea Nitrogen 8 mg/dl (7-17); Calcium 8.7 mg/dl (8.4-10.2); Carbon Dioxide 27 mmol/L (22-30); Chloride 103 mmol/L (98-107); Glucose 128 mg/dl (70-99); Magnesium 1.9 mg/dl (1.6-2.3); Potassium 4.5 mmol/L (3.5-5.1); Sodium 134 mmol/L (135-145); Total Protein 6.0 g/dl (6.3-8.2); eGFR > 60.00
== END ==
LOC: OLABWHC 10:28
PROVIDERS: ATTENDING PHYSICIAN Family Medicine
DX: E11.9 Type 2 diabetes mellitus without complications (principal); S72.001A Fracture of unspecified part of neck of right femur, initial encounter for closed fracture
CPT/HCPCS: 36415; 80053; 83735; 85027